=== PATIENT | male | born 1950 | race Caucasian/White ===

== ENCOUNTER 2017-04-04 00:40 | Emergency (ER) | payer MEDICARE, MEDICAID ==
[~2017-04-04] VITALS: Ht 185.4 cm; Wt 81.6 kg
[~2017-04-04 00:40] MED LIST: ACET1TAB12 PO; ALBU18HF2 INH; ALBU8.5H4 IH; BRIM5DRO5 OP; FLUT1DIS28 IH; FOLI1TAB16 PO; HYDR-548 PO; LATA2.5D7 EACHEYE; LEVO750T21 PO; LITH300C2 PO; LITH300C4 PO; NITR0.4T SL; TERA2CAP4 PO
[2017-04-04 02:27] VITALS: BP 108/74
== END 2017-04-04 02:51 | disposition home or self-care (01) ==
LOC: ER 00:43
DX: R25.1 Tremor, unspecified (principal); I95.9 Hypotension, unspecified; I49.9 Cardiac arrhythmia, unspecified; M25.562 Pain in left knee; M25.561 Pain in right knee; G89.29 Other chronic pain; F31.9 Bipolar disorder, unspecified; F32.9 Major depressive disorder, single episode, unspecified; H40.9 Unspecified glaucoma; F17.200 Nicotine dependence, unspecified, uncomplicated
CPT/HCPCS: A4606; Z7502; Z7610

== ENCOUNTER 2017-06-25 03:14 | Emergency (ER) | payer MEDICARE, MEDICAID ==
[~2017-06-25] VITALS: Ht 175.3 cm; Wt 79.4 kg
--- NOTE | 2017-06-25 03:20 | NUR ---
.To bed 8 a 66 yo male bibself and requesting medical clearance for cassi mensah. Patient is aaox4, ambulatory with steady gait, nad noted, vss. Awaiting for er md pedraza
--- NOTE | 2017-06-25 03:25 | NUR ---
Cruller Maker Machine at bedside for eval.
[2017-06-25 03:44] LABS: BASOPHILS % (AUTO) 0.2 % (0.0-2.0); EOSINOPHILS % (AUTO) 0.2 % (0.0-6.0); HEMATOCRIT 43 % (39-51); HEMOGLOBIN 14.3 g/dL (13.5-17.5); LYMPHOCYTES # (AUTO) 1.1 /CMM (0.8-4.8); LYMPHOCYTES % (AUTO) 10.8 % (20.0-44.0); MEAN CORPUSCULAR HEMOGLOBIN 31 PG (26.0-33.0); MEAN CORPUSCULAR HGB CONC 33 g/dl (31.0-36.0); MEAN CORPUSCULAR VOLUME 93 fL (80-96); MONOCYTES # (AUTO) 0.6 /CMM (0.1-1.30); MONOCYTES % (AUTO) 6.3 % (2.0-12.0); NEUTROPHILS # (AUTO) 8.4 /CMM (1.8-8.9); NEUTROPHILS % (AUTO) 82.5 % (43.0-81.0); PLATELET COUNT (AUTO) 255 /CMM (150-450); RDW COEFFICIENT OF VARIATION 14.3 (11.5-15.0); RED BLOOD CELL COUNT(AUTO) 4.65 MIL/uL (4.5-6.0); WHITE BLOOD COUNT (AUTO) 10.2 K/uL (4.3-11.0)
[2017-06-25 03:47] LABS: APPEARANCE,URINE CLEAR (CLEAR); BILIRUBIN,URINE NEGATIVE (NEGATIVE); BLOOD, URINE NEGATIVE Ery/uL (NEGATIVE); COLOR,URINE YELLOW (YELLOW); KETONES,URINE NEGATIVE (NEGATIVE); LEUKOCYTE ESTERASE ,URINE NEGATIVE (NEGATIVE); NITRITE, URINE NEGATIVE (NEGATIVE); PH,URINE 5.5 (5.0-8.0); PROTEIN,URINE NEGATIVE (NEGATIVE); UGLUCOSE NEGATIVE (NEGATIVE); UROBILINOGEN,URINE 0.2 EU/dL (0.2)
[2017-06-25 03:53] LABS: CALCIUM, SERUM 9.2 mg/dL (8.5-10.1); CREATININE 0.9 mg/dL (0.6-1.3); POTASSIUM 3.8 mmol/L (3.5-5.1)
[2017-06-25 03:59] LABS: ALBUMIN 4.3 g/dL (3.4-5.0); BILIRUBIN,DIRECT 0.1 mg/dL (0.0-0.2); BILIRUBIN,TOTAL 0.4 mg/dL (0.2-1.0); SALICYLATE 2.9 mg/dL (2.8-20.0); TOTAL PROTEIN, SERUM 7.9 g/dL (6.4-8.2)
[2017-06-25] MEDS ORDERED: HYDROCODONE/APAP 5/325MG 1 EACH TABLET ONE (04:01)
--- NOTE | 2017-06-25 04:10 | NUR ---
Medicated patient as ordered by Dr Catherine.
[2017-06-25] MEDS ORDERED: HYDROCODONE/APAP 5/325MG 1 EACH TABLET PO ONE (04:30)
--- NOTE | 2017-06-25 09:14 | NUR ---
CALLED [facility] ([phone]) AND SPOKE WITH [place]. SHE STATES THERE IS BED AVAILABLILITY AT [facility] LOC[facility]. ACCEPTING MD IS DR. CUI CHART FAXED TO [phone] INSTRUCTED TO FOLLOW UP WITH [facility] AT [phone]
--- NOTE | 2017-06-25 09:51 | NUR ---
CALLED [facility] AT [phone] AND SPOKE WITH UNIT CHARGE NURSE. SHE REQUESTS A CALL BACK IN 30 MIN TO REVIEW CHART AND FIND BED PLACEMENT
--- NOTE | 2017-06-25 10:30 | NUR ---
PT WILL BE GOING TO [facility] ROOM 629-B NURSING REPORT GIVEN TO PONCHO HUERTAS
--- NOTE | 2017-06-25 10:31 | NUR ---
CALLED [facility] FOR TRANSPORT ETA 1 HOUR
[2017-06-25 10:34] VITALS: BP 111/73
--- NOTE | 2017-06-25 11:00 | NUR ---
per patient denies si/hi and wants to leave. refused to be transferred to facility. no further complaints. vss. pt verbalized understanding of discharge instructions. no further complaints.
--- NOTE | 2017-06-25 11:00 | NUR ---
DR. MERRILL AT BEDSIDE TO REEVALUATE PATIENT
== END 2017-06-25 11:11 | disposition short-term general hospital (02) ==
LOC: ER 03:16
DX: F31.9 Bipolar disorder, unspecified (principal); F25.9 Schizoaffective disorder, unspecified; H40.9 Unspecified glaucoma; F17.200 Nicotine dependence, unspecified, uncomplicated
CPT/HCPCS: 36415; 80048-TC; 80076-TC; 80305; 81000-TC; 85025-TC; A4606; G0480; Z7610

== ENCOUNTER 2019-05-21 13:35 | Inpatient (IN) | payer MEDICARE, MEDICAID ==
[~2019-05-21] VITALS: Ht 185.4 cm; Wt 83.9 kg
[~2019-05-21 13:35] MED LIST changes: +BRIM5DRO5 EACHEYE; -BRIM5DRO5 OP; +HYDR-4354 PO; -HYDR-548 PO
--- NOTE | 2019-05-21 13:45 | NUR ---
PT BIB PA FROM [facility], LEFT FACIAL DROOP AND LUE WEAKNESS X 1 WEEK, PT IS AAOX, NOT IN RESPIRATORY DISTRESS, HOOKED TO MONITOR, V/S STABLE, KEPT RESTED AND COMFORTABLE, WILL CONTINUE TO MONITOR.
--- NOTE | 2019-05-21 13:55 | NUR ---
IV LINE ESTABLISHED, BLOOD DRAWNED AND SENT TO LAB.
--- NOTE | 2019-05-21 14:10 | NUR ---
URINAL GIVEN BUT UNABLE TO PROVIDE URINE SPECIMEN.
[2019-05-21 14:12] LABS: BASOPHILS # (AUTO) 0.1 /CMM (0.0-0.2); BASOPHILS % (AUTO) 1.8 % (0.0-2.0); EOSINOPHILS % (AUTO) 2.3 % (0.0-6.0); HEMATOCRIT 45 % (39-51); HEMOGLOBIN 14.8 g/dL (13.5-17.5); LYMPHOCYTES # (AUTO) 1.1 /CMM (0.8-4.8); LYMPHOCYTES % (AUTO) 18.5 % (20.0-44.0); MEAN CORPUSCULAR HGB CONC 33 g/dl (31.0-36.0); MEAN CORPUSCULAR VOLUME 96 fL (80-96); MONOCYTES # (AUTO) 0.6 /CMM (0.1-1.30); MONOCYTES % (AUTO) 10.4 % (2.0-12.0); NEUTROPHILS # (AUTO) 3.8 /CMM (1.8-8.9); PLATELET COUNT (AUTO) 194 /CMM (150-450); RED BLOOD CELL COUNT(AUTO) 4.68 MIL/uL (4.5-6.0); WHITE BLOOD COUNT (AUTO) 5.7 K/uL (4.3-11.0)
--- NOTE | 2019-05-21 14:13 | NUR ---
SEEN AND EXAMINED BY DR. العراقي.
[2019-05-21 14:19] LABS: CALCIUM, SERUM 8.6 mg/dL (8.5-10.1); CARBON DIOXIDE 27 mmol/L (21-32); CHLORIDE 105 mmol/L (98-107); CREATININE 0.8 mg/dL (0.6-1.3); GLUCOSE 110 mg/dL (74-106); POTASSIUM 3.9 mmol/L (3.5-5.1); SODIUM SERUM 138 mmol/L (136-145); UREA NITROGEN, BLOOD 19 mg/dL (7-18)
--- NOTE | 2019-05-21 14:20 | NUR ---
PT IS WHEELED TO CT SCAN VIA [facility].
[2019-05-21] MEDS ORDERED: NALO4SPR NS (14:24)
[2019-05-21] MEDS ORDERED: HYDR-3976 PO (14:24)
[2019-05-21] MEDS ORDERED: TAMS-12 PO (14:24)
[2019-05-21] MEDS ORDERED: ACET-2605 PO (14:24)
[2019-05-21] MEDS ORDERED: GABA-534 PO (14:24)
[2019-05-21] MEDS ORDERED: DICL100G16 TP (14:24)
[2019-05-21] MEDS ORDERED: RIVA10TA PO (14:24)
[2019-05-21] MEDS ORDERED: FLUT1BLS IH (14:24)
[2019-05-21] MEDS ORDERED: NICO-676 TD (14:24)
[2019-05-21] MEDS ORDERED: TIOT18CA3 IH (14:24)
[2019-05-21] MEDS ORDERED: ACET-868 PO (14:24)
[2019-05-21] MEDS ORDERED: FINA5TAB11 PO (14:24)
[2019-05-21] MEDS ORDERED: FLUT16SP BNOSTRILS (14:24)
[2019-05-21] MEDS ORDERED: MIRT15TA7 PO (14:24)
[2019-05-21] MEDS ORDERED: NYST15OI2 TP (14:24)
[2019-05-21] MEDS ORDERED: ARIP10TA9 PO (14:24)
[2019-05-21 14:48] LABS: CHOLESTEROL 137 mg/dL (<200); HDL CHOLESTEROL 46 mg/dL (40-60); LDL 78 mg/dL (0-99); TRIGLYCERIDES 81 mg/dL (30-150)
--- NOTE | 2019-05-21 16:16 | NUR ---
CALLED OFFICE OF DR JONAS, PAGED MEDICAL OFFICE REP
--- NOTE | 2019-05-21 16:32 | NUR ---
CALLED PATRICK HAMILTON, CURRICULUM ASSISTANT PRINCIPAL SAM SLATER
--- NOTE | 2019-05-21 18:30 | NUR ---
REPORT GIVEN TO KIYA ALSTON FOR DINORA.
[2019-05-21 20:00] VITALS: BP 91/55
--- NOTE | 2019-05-21 20:00 | NUR ---
FIRST OFFICER NOTES RECEIVED PATIENT AWAKE IN BED WITH NO DISTRESS NOTED. CALL LIGHT WITHIN REACH. NO C/O PAIN OR DISCOMFORT. RIGHT HAND #18 GAUGE INTACT AND PATENT. STILL NOTED WITH LEFT FACIAL DROOP. SPOKE WITH DR. CARIAS FOR ADMITTING ORDERS. ALL ORDERS NOTED AND CARRIED OUT. PATIENT REFUSED SKIN ASSESSMENT AND TELE MONITORING DESPITE EXPLANATION OF RISKS AND BENEFITS. PER PATIENT, NO NEED D/T HE "WILL BE GOING HOME TOMORROW ANYWAY." CONTINUED ENCOURAGEMENT GIVEN AND PATIENT SAID HE WOULD ALLOW TELE LEADS TO BE PLACED ON HIM IF HE IS GIVEN MORE FOOD. NOC ANALYST GAVE HIM SANDWICHES BUT PATIENT STILL CONTINUES TO BE NON COMPLIANT. BED IN LOW LOCK SETTING. ROOM FREE OF CLUTTER AND BELONGINGS KEPT NEAR BEDSIDE. WILL CONTINUE TO MONITOR.
[2019-05-21] MEDS ORDERED: HOME MED MISCELLANEOUS XX PRN (21:30)
[2019-05-21] MEDS ORDERED: HYDROCODONE/APAP 7.5/325MG 1 EACH TABLET PO PRN (21:30)
[2019-05-21] MEDS ORDERED: MISCELLANEOUS MED 1 EA EA PO PRN (21:30)
[2019-05-21] MEDS ORDERED: FLUTICASONE PROPIONATE 16 GM BOTTLE NS PRN (21:30)
[2019-05-21] MEDS ORDERED: ACETAMINOPHEN 325 MG TABLET PO PRN (21:30)
[2019-05-21] MEDS ORDERED: ALBUTEROL SULFATE 8 GM HFA.AER.AD IH SCH (21:30)
[2019-05-21] MEDS ORDERED: ASPIRIN 325 MG TABLET PO ONE (22:00)
[2019-05-22] MEDS: ARIPIPRAZOLE 5 MG TABLET PO SCH ×2 (00:27→22:35)
[2019-05-22] MEDS: MIRTAZAPINE 15 MG TABLET PO SCH ×2 (00:27→20:28)
[2019-05-22] MEDS: ALBUTEROL FS 2.5 MG/3 ML VIAL.NEB NEB SCH ×4 (00:36→19:30)
[2019-05-22] MEDS: IPRATROPIUM NEB FS 0.5 MG/2.5 ML AMPUL.NEB NEB SCH ×4 (00:36→19:30)
[2019-05-22 06:41] LABS: BASOPHILS % (AUTO) 0.6 % (0.0-2.0); EOSINOPHILS % (AUTO) 3.5 % (0.0-6.0); HEMATOCRIT 44 % (39-51); HEMOGLOBIN 14.4 g/dL (13.5-17.5); MEAN CORPUSCULAR HGB CONC 33 g/dl (31.0-36.0); MEAN CORPUSCULAR VOLUME 94 fL (80-96); MONOCYTES # (AUTO) 0.5 /CMM (0.1-1.30); MONOCYTES % (AUTO) 11.9 % (2.0-12.0); NEUTROPHILS # (AUTO) 2.3 /CMM (1.8-8.9); PLATELET COUNT (AUTO) 169 /CMM (150-450); RED BLOOD CELL COUNT(AUTO) 4.62 MIL/uL (4.5-6.0)
--- NOTE | 2019-05-22 06:54 | NUR ---
AIRCRAFT METALSMITH NOTES PATIENT ASLEEP IN BED WITH NO DISTRESS NOTED. CALL LIGHT WITHIN REACH. ALL DUE MEDS GIVEN ORDERED WITH NO ASE NOTED. PERIPHERAL LINE INTACT AND PATENT. PATIENT STILL REFUSES TELE MONITORING AND STATES THE LEADS AND WIRES ANNOY HIM AND MAKE HIM FEEL UNCOMFORTABLE. ALSO REFUSED AM VITALS CHECK. CONTINUED ENCOURAGEMENT AND EXPLANATION OF RISKS AND BENEFITS GIVEN. BED IN LOW LOCK SETTING. ROOM FREE OF CLUTTER AND BELONGINGS KEPT NEAR BEDSIDE. WILL ENDORSE TO ONCOMING SHIFT.
[2019-05-22 06:58] LABS: CALCIUM, SERUM 8.8 mg/dL (8.5-10.1); CREATININE 0.9 mg/dL (0.6-1.3); POTASSIUM 4.3 mmol/L (3.5-5.1)
[2019-05-22 08:00] VITALS: BP 103/65
--- NOTE | 2019-05-22 08:00 | NUR ---
ROOM SERVICE MANAGER OPENING NOTES Received Patient resting and sitting up on bed. A/O x 3. VS stable with no acute distress. Breathing even and unlabored on room air with no respiratory distress. Patient stated moderate pain on bilateral knees. Will intervene as ordered. 18g PIV on RIGHT HAND clean, dry, intact and flushing well. Patient REFUSED telemonitor placement. Patient stated that monitor is uncomfortable. Explained risks and benefits to Patient. Patient still refuses. Safety precautions in place. Bed locked and set to lowest position with side rails x 2 up. Will continue to monitor.
[2019-05-22] MEDS ORDERED: TIOTROPIUM BROMIDE 6 CAP/BOX CAP.W.DEV IH SCH (09:00)
[2019-05-22] MEDS ORDERED: NICOTINE PATCH (14MG) 14 MG PATCH.TD24 TD SCH ×3 (09:00)
[2019-05-22] MEDS: FLUTICASONE/VILANTEROL 1 EACH BLST.W.DEV IH SCH (09:29)
[2019-05-22] MEDS: HYDROCODONE/APAP 5/325MG 1 EACH TABLET PO PRN ×3 (09:33→20:28)
[2019-05-22] MEDS: FINASTERIDE (5 MG) 5 MG TABLET PO SCH (09:37)
[2019-05-22] MEDS: ASPIRIN 325 MG TABLET PO SCH (09:37)
[2019-05-22] MEDS: TAMSULOSIN 0.4 MG CAP.SR.24H PO SCH (09:37)
[2019-05-22] MEDS: LITHIUM CARBONATE (300 MG CAP) 300 MG CAPSULE PO SCH ×3 (09:37→16:33)
[2019-05-22] MEDS: GABAPENTIN 300 MG CAPSULE PO SCH ×3 (09:37→16:33)
[2019-05-22] MEDS: BRIMONIDINE TARTRATE OPHT SOLN 5 ML BOTTLE EACHEYE SCH ×3 (11:21→16:31)
[2019-05-22] MEDS ORDERED: NALOXONE HCL 0.4 MG/ML AMPUL IV PRN (14:00)
[2019-05-22 16:00] VITALS: BP 98/68
[2019-05-22] MEDS: RIVAROXABAN 10 MG TABLET PO SCH (16:32)
--- NOTE | 2019-05-22 19:10 | NUR ---
MS RN OPENING NOTES; RECEIVED PATIENT RESTING COMFORTABLY IN BED, SLEEPING AROUSABLE, ALERT AND ORIENTED X4. UPPER BED SIDERAILS X2 ARE DOWN PATIENT REFUSED IT TO PLACE THEM UP. PATIENT REFUSED THE HOSPITAL SOCKS, EDUCATED THE IMPORTANCE OF SOCKS AND SIDERAILS, PATIENT STILL REFUSED. REMINDED PATIENT TO CALL FOR ASSISTANCE WHEN OOB, AND TO USE FWW WHICH IS AVAILABLE AT THE BEDSIDE, PATIENT VERBALIZED UNDERSTANDING. CALL LIGHT WITHIN REACH. PATIENT REFUSED THE BED ALARM ON. PATIENT REFUSED TO WEAR GOWN. NO NOTED WEAKNESS ON ALL EXTREMETIES. THER'S A LITTLE FACIAL DROOPING ON THE LEFT SIDE WHEN HE SMILED. NO SOB.
--- NOTE | 2019-05-22 19:19 | NUR ---
MS RN CLOSING NOTES Patient asleep and resting on bed. A/O x 3. VS stable with no acute distress. Breathing even and unlabored on room air with no respiratory distress. No signs and symptoms of pain noted. 18g PIV on RIGHT HAND clean, dry, intact and flushing well. Safety precautions in place. Bed locked and set to lowest position with side rails x 2 up. All needs rendered at this time. Will endorse plan of care to oncoming shift.
[2019-05-22 20:00] VITALS: BP 91/55
[2019-05-22 20:15] VITALS: BP 91/55
[2019-05-22] MEDS: LATANOPROST EYE DROP 0.005% 2.5 ML BOTTLE EACHEYE SCH (20:27)
--- NOTE | 2019-05-22 20:54 | NUR ---
CALLED THE PHARMACY RE: MEDS ABILIFY TABS X2 BARCODE CANNOT BE SCANNED. THEY WILL BRING ANOTHER TABS. PLACED THE 2 TABS ON THE PATIENT'S BIN INSUDE THE MED ROOM PER PHARMACY INSTRUCTIONS.
[2019-05-23] MEDS: HYDROCODONE/APAP 5/325MG 1 EACH TABLET PO PRN ×5 (01:08→22:10)
--- NOTE | 2019-05-23 01:23 | NUR ---
PATIENT REFUSED SCD'S. EDUCATED THE BENEFITS OF THE MED.
[2019-05-23] MEDS: IPRATROPIUM NEB FS 0.5 MG/2.5 ML AMPUL.NEB NEB SCH ×4 (01:30→18:55)
[2019-05-23] MEDS: ALBUTEROL FS 2.5 MG/3 ML VIAL.NEB NEB SCH ×4 (01:30→18:55)
--- NOTE | 2019-05-23 06:27 | NUR ---
MS RN CLOSING NOTES: PATIENT IS RESTING COMFORTABLY IN BED. NO SOB NOTED. MEDICATED WITH PAIN MED PRN, PAIN IS MANAGED. SLEPT THROUGHOUT THE NIGHT. V/S AND 02 SAT WNL. CALL LIGHT WITHIN REACH. BED IN LOW AND LOCKED POSITION. NO ACUTE EVENTS OVERNIGHT.
--- NOTE | 2019-05-23 07:06 | NUR ---
MS RN NOTES PATIENT IN BED ALERT ORIENTED X 4. NO ACUTE DISTRESS NOTED. BREATHING UNLABORED. NO SOB NOTED. IV ACCESS PATENT AND INTACT, NO REDNESS OR SWELLING NOTED. SAFETY MEASURES IN PLACE. CALL LIGHT WITHIN REACH. WILL CONTINUE TO MONITOR ACCORDINGLY.
[2019-05-23 07:30] LABS: BASOPHILS % (AUTO) 0.5 % (0.0-2.0); EOSINOPHILS % (AUTO) 4.3 % (0.0-6.0); HEMATOCRIT 45 % (39-51); HEMOGLOBIN 14.9 g/dL (13.5-17.5); LYMPHOCYTES # (AUTO) 1.3 /CMM (0.8-4.8); LYMPHOCYTES % (AUTO) 27.8 % (20.0-44.0); MEAN CORPUSCULAR HGB CONC 33 g/dl (31.0-36.0); MEAN CORPUSCULAR VOLUME 95 fL (80-96); MONOCYTES # (AUTO) 0.6 /CMM (0.1-1.30); MONOCYTES % (AUTO) 12.1 % (2.0-12.0); NEUTROPHILS # (AUTO) 2.6 /CMM (1.8-8.9); NEUTROPHILS % (AUTO) 55.3 % (43.0-81.0); PLATELET COUNT (AUTO) 153 /CMM (150-450); RED BLOOD CELL COUNT(AUTO) 4.74 MIL/uL (4.5-6.0); WHITE BLOOD COUNT (AUTO) 4.7 K/uL (4.3-11.0)
[2019-05-23 07:46] LABS: ALBUMIN 3.4 g/dL (3.4-5.0); BILIRUBIN,TOTAL 0.3 mg/dL (0.2-1.0); CALCIUM, SERUM 8.9 mg/dL (8.5-10.1); CREATININE 0.9 mg/dL (0.6-1.3); PHOSPHORUS 3.3 mg/dL (2.5-4.9); POTASSIUM 4.7 mmol/L (3.5-5.1); TOTAL PROTEIN, SERUM 6.6 g/dL (6.4-8.2)
[2019-05-23 08:00] VITALS: BP 105/74
[2019-05-23] MEDS: FLUTICASONE/VILANTEROL 1 EACH BLST.W.DEV IH SCH (08:49)
[2019-05-23] MEDS: BRIMONIDINE TARTRATE OPHT SOLN 5 ML BOTTLE EACHEYE SCH ×3 (08:50→18:04)
[2019-05-23] MEDS: LITHIUM CARBONATE (300 MG CAP) 300 MG CAPSULE PO SCH ×3 (08:50→18:02)
[2019-05-23] MEDS: TAMSULOSIN 0.4 MG CAP.SR.24H PO SCH (08:50)
[2019-05-23] MEDS: ASPIRIN 325 MG TABLET PO SCH (08:50)
[2019-05-23] MEDS: GABAPENTIN 300 MG CAPSULE PO SCH ×3 (08:51→18:02)
[2019-05-23] MEDS: FINASTERIDE (5 MG) 5 MG TABLET PO SCH (08:51)
[2019-05-23] MEDS: MUPIROCIN OINT 2% 22 GM TUBE SCH ×2 (12:48→22:20)
[2019-05-23 15:45] VITALS: BP 110/67
[2019-05-23] MEDS: RIVAROXABAN 10 MG TABLET PO SCH (18:03)
--- NOTE | 2019-05-23 18:53 | NUR ---
MS RN NOTES PATIENT IN BED ALERT ORIENTED X 4. NO ACUTE DISTRESS NOTED. BREATHING UNLABORED. NO SOB NOTED. IV ACCESS PATENT AND INTACT, NO REDNESS OR SWELLING NOTED. DUE MEDICATIONS GIVEN, NO ASE NOTED. NEEDS ATTENDED AND ANTICIPATED.SAFETY MEASURES IN PLACE. CALL LIGHT WITHIN REACH. WILL ENDORSE TO NIGHT NURSE FOR CONTINUITY OF CARE.
--- NOTE | 2019-05-23 19:45 | NUR ---
MS RN NOTES LAYING COMFORTABLY ON BED WATCHING TV PROGRAM,A/O X4,ABLE TO VERBALIZED NEEDS.ISOLATION PRECAUTION FOR MRSA NARES.SALINE LOCK RIGHT HAND INTACT AND PATENT.WILL CONTINUE TO MONITOR STATUS.
[2019-05-23 20:00] VITALS: BP 95/61
[2019-05-23] MEDS: LATANOPROST EYE DROP 0.005% 2.5 ML BOTTLE EACHEYE SCH (22:10)
[2019-05-23] MEDS: ARIPIPRAZOLE 5 MG TABLET PO SCH (22:10)
--- NOTE | 2019-05-23 22:10 | NUR ---
MS RN NOTES PAIN MANAGEMENT AWAKE THIS TIME,C/O LOWER BACK AND KNEE PAIN,MEDICATED WITH NORCO 5/325MG 1.5 TABLET GIVEN.WILL MONITOR FOR RELIEF.
[2019-05-23] MEDS: MIRTAZAPINE 15 MG TABLET PO SCH (22:11)
[2019-05-24] MEDS: ALBUTEROL FS 2.5 MG/3 ML VIAL.NEB NEB SCH ×3 (01:13→12:55)
[2019-05-24] MEDS: IPRATROPIUM NEB FS 0.5 MG/2.5 ML AMPUL.NEB NEB SCH ×3 (01:13→12:55)
[2019-05-24] MEDS: HYDROCODONE/APAP 5/325MG 1 EACH TABLET PO PRN ×2 (03:18→11:30)
--- NOTE | 2019-05-24 03:18 | NUR ---
MS RN NOTES PAIN MANAGEMENT AWAKE,C/O BILATERAL KNEE PAIN,MEDICATED WITH NORCO 5/325MG,1.5 TABLET GIVEN ORDERED.
--- NOTE | 2019-05-24 06:16 | NUR ---
MS RN NOTES SLEPT WELL WITH PAIN MANAGEMENT.REMAINS ON ISOLATION PRECAUTION FOR MRSA NARES.PREFERS TO BE D/C HOME AND NEEDS TRANSPORTATION.IN NO ACUTE DISTRESS.WILL GIVE REPORT TO NORI HUERTAS FOR DINORA.
--- NOTE | 2019-05-24 07:27 | NUR ---
RN MS NOTES OPENING Patient is currently at 2L o2 nasal cannula, patient was having an episode of SOB earlier and was put on o2. RT called. No s/s of pain at this time. patient resting comfortably on his bed. bed at the lowest setting, call light within reach.
[2019-05-24 08:00] VITALS: BP 107/76
[2019-05-24] MEDS: FINASTERIDE (5 MG) 5 MG TABLET PO SCH (08:16)
[2019-05-24] MEDS: ASPIRIN 325 MG TABLET PO SCH (08:16)
[2019-05-24] MEDS: TAMSULOSIN 0.4 MG CAP.SR.24H PO SCH (08:16)
[2019-05-24] MEDS: GABAPENTIN 300 MG CAPSULE PO SCH ×2 (08:17→12:30)
[2019-05-24] MEDS: LITHIUM CARBONATE (300 MG CAP) 300 MG CAPSULE PO SCH ×2 (08:17→12:30)
[2019-05-24] MEDS: BRIMONIDINE TARTRATE OPHT SOLN 5 ML BOTTLE EACHEYE SCH ×2 (08:18→12:31)
[2019-05-24] MEDS: MUPIROCIN OINT 2% 22 GM TUBE SCH (08:18)
[2019-05-24] MEDS: FLUTICASONE/VILANTEROL 1 EACH BLST.W.DEV IH SCH (08:18)
--- NOTE | 2019-05-24 14:40 | NUR ---
RN MS NOTES Patient to be transferred to [place] [facility] at this time. No sob noted, vital signs stable and is baseline per patient. Patient has all his belongings with him during discharge, all paperwork are signed and patient has no questions or concerns about discharge instructions. Patient refused to have his skin checked and stated that it is fine. Removed IV with minimal bleeding noted. Patient taken with the ambulance.
== END 2019-05-24 15:00 | DRG 69 ==
LOC: ER 13:37 → TELE 16:11 → MED 05-22 12:22
PROVIDERS: ADMIT Internal Medicine Nephrology; ATTEND Internal Medicine Nephrology
DX: G45.9 Transient cerebral ischemic attack, unspecified (principal); F32.9 Major depressive disorder, single episode, unspecified; H40.9 Unspecified glaucoma; M19.90 Unspecified osteoarthritis, unspecified site; G89.29 Other chronic pain; Z91.5 Personal history of self-harm; Z82.3 Family history of stroke; Z79.899 Other long term (current) drug therapy; Z79.51 Long term (current) use of inhaled steroids; Z79.01 Long term (current) use of anticoagulants; N40.0 Benign prostatic hyperplasia without lower urinary tract symptoms; H54.62 Unqualified visual loss, left eye, normal vision right eye; Z86.73 Personal history of transient ischemic attack (TIA), and cerebral infarction without residual deficits; R29.818 Other symptoms and signs involving the nervous system
CPT/HCPCS: 36415; 70450-TC; 71045-TC; 80048-TC; 80053-TC; 80061-TC; 80305; 83735-TC; 84100-TC; 84484-TC; 85025-TC; 85730-TC; 87081-TC; 92507-TC; 92521; 92526; 92611-TC; 93307-TC; 93880-TC; 94799-TC; 97116-TC; 97530-TC; 97535-TC; G0378

== ENCOUNTER 2019-08-23 10:32 | Emergency (ER) | payer MEDICARE, MEDICAID ==
[~2019-08-23] VITALS: Ht 185.4 cm; Wt 89.4 kg
[~2019-08-23 10:32] MED LIST changes: +ACET-2605 PO; +ACET-868 PO; -ACET1TAB12 PO; -ALBU8.5H4 IH; +ARIP10TA9 PO; +DICL100G16 TP; +FINA5TAB11 PO; +FLUT16SP BNOSTRILS; +FLUT1BLS IH; -FLUT1DIS28 IH; -FOLI1TAB16 PO; +GABA-534 PO; +HYDR-3976 PO; -HYDR-4354 PO; -LEVO750T21 PO; -LITH300C4 PO; +MIRT15TA7 PO; +NALO4SPR NS; +NICO-676 TD; -NITR0.4T SL; +NYST15OI2 TP; +RIVA10TA PO; +TAMS-12 PO; -TERA2CAP4 PO; +TIOT18CA3 IH
--- NOTE | 2019-08-23 10:42 | NUR ---
[facility] unit 29 from [facility] "SOB/generalized weakness.They gave me RTx but feel not getting enough air". Patient a/ox4, no distress noted, on room air with spo2 of 97%. Patient changed into gown, attached to the quality assurance supervisor body. Needs attended. Will monitor.
[2019-08-23] MEDS ORDERED: OXYB5TAB11 PO (10:48)
[2019-08-23] MEDS ORDERED: DORZ10DR11 EACHEYE (10:48)
[2019-08-23] MEDS ORDERED: ALBU2.5V38 IH (10:48)
[2019-08-23] MEDS ORDERED: BISA10SU11 RC (10:48)
[2019-08-23] MEDS ORDERED: BUPR150T12 PO (10:48)
[2019-08-23] MEDS ORDERED: IPRA0.2S9 IH (10:48)
[2019-08-23] MEDS ORDERED: ASPI-992 PO (10:48)
[2019-08-23] MEDS ORDERED: MAGN400O6 PO (10:48)
[2019-08-23 11:31] LABS: BASOPHILS % (AUTO) 0.5 % (0.0-2.0); EOSINOPHILS % (AUTO) 2.5 % (0.0-6.0); HEMATOCRIT 42 % (39-51); HEMOGLOBIN 13.9 g/dL (13.5-17.5); LYMPHOCYTES # (AUTO) 1.1 /CMM (0.8-4.8); LYMPHOCYTES % (AUTO) 13.7 % (20.0-44.0); MEAN CORPUSCULAR HGB CONC 33 g/dl (31.0-36.0); MEAN CORPUSCULAR VOLUME 97 fL (80-96); MONOCYTES # (AUTO) 0.6 /CMM (0.1-1.30); MONOCYTES % (AUTO) 8.2 % (2.0-12.0); NEUTROPHILS # (AUTO) 5.9 /CMM (1.8-8.9); NEUTROPHILS % (AUTO) 75.1 % (43.0-81.0); PLATELET COUNT (AUTO) 206 /CMM (150-450); WHITE BLOOD COUNT (AUTO) 7.9 K/uL (4.3-11.0)
[2019-08-23 11:34] LABS: CALCIUM, SERUM 9.2 mg/dL (8.5-10.1); CARBON DIOXIDE 30 mmol/L (21-32); CHLORIDE 105 mmol/L (98-107); GLUCOSE 99 mg/dL (74-106); POTASSIUM 4.4 mmol/L (3.5-5.1); SODIUM SERUM 139 mmol/L (136-145); UREA NITROGEN, BLOOD 18 mg/dL (7-18)
[2019-08-23 11:52] LABS: ALANINE AMINOTRANSFERASE 21 U/L (12-78); ALBUMIN 3.6 g/dL (3.4-5.0); ALKALINE PHOSPHATASE 49 U/L (46-116); ASPARTATE AMINOTRANSFERASE 14 U/L (15-37); B-TYPE NATRIURETIC PEPTIDE 316 PG/ML (0-125); BILIRUBIN,DIRECT 0.1 mg/dL (0.0-0.2); BILIRUBIN,TOTAL 0.3 mg/dL (0.2-1.0); TOTAL PROTEIN, SERUM 6.9 g/dL (6.4-8.2)
[2019-08-23] MEDS ORDERED: ALBUTEROL FS 2.5 MG/0.5 ML VIAL.NEB ONE (13:17)
[2019-08-23] MEDS ORDERED: IPRATROPIUM NEB FS 0.5 MG/2.5 ML AMPUL.NEB ONE (13:17)
[2019-08-23] MEDS ORDERED: ALBUTEROL FS 2.5 MG/0.5 ML VIAL.NEB NEB ONE (13:30)
[2019-08-23] MEDS ORDERED: IPRATROPIUM NEB FS 0.5 MG/2.5 ML AMPUL.NEB NEB ONE (13:30)
--- NOTE | 2019-08-23 14:22 | NUR ---
ARRANGED S TRANSPORT WITH [id number], TRIP NUMBER [id number]
[2019-08-23 15:29] VITALS: BP 108/65
--- NOTE | 2019-08-23 15:29 | NUR ---
PATIENT IN NO RESP DISTRESS, STATED HE FEELS BETTER. VITALS STABLE. REPORT GIVEN TO GAME FARM SUPERVISOR. IV removed. Catheter intact and site benign. Pressure and 4x4 applied to site. No bleeding noted.Patient discharged to SNF in stable condition. Written and verbal after care instructions given. Patient verbalizes understanding of inst uction.
== END 2019-08-23 15:30 ==
LOC: ER 10:36
DX: R06.02 Shortness of breath (principal); I95.9 Hypotension, unspecified; J45.909 Unspecified asthma, uncomplicated; N40.0 Benign prostatic hyperplasia without lower urinary tract symptoms; G89.29 Other chronic pain; M54.5 Low back pain; F31.9 Bipolar disorder, unspecified; R26.2 Difficulty in walking, not elsewhere classified; F10.10 Alcohol abuse, uncomplicated; F17.200 Nicotine dependence, unspecified, uncomplicated; I44.0 Atrioventricular block, first degree; Y90.9 Presence of alcohol in blood, level not specified; Z79.82 Long term (current) use of aspirin; Z86.73 Personal history of transient ischemic attack (TIA), and cerebral infarction without residual deficits
CPT/HCPCS: 36415; 71045-TC; 80048-TC; 80076-TC; 83880; 84484-TC; 85025-TC; 85378-TC

== ENCOUNTER 2020-07-09 12:47 | Inpatient (IN) | payer MEDICARE, OTHER ==
[~2020-07-09] VITALS: Ht 185.4 cm; Wt 87.1 kg
[~2020-07-09 12:47] MED LIST changes: -ACET-2605 PO; -ALBU18HF2 INH; +ALBU2.5V38 IH; +ASPI-992 PO; +BISA10SU11 RC; +BUPR150T12 PO; -DICL100G16 TP; +DORZ10DR11 EACHEYE; +IPRA0.2S9 IH; +MAGN400O6 PO; -MIRT15TA7 PO; -NALO4SPR NS; -NICO-676 TD; -NYST15OI2 TP; +OXYB5TAB16 PO; -RIVA10TA PO; -TIOT18CA3 IH
[2020-07-09] MEDS ORDERED: ALBUTEROL FS 2.5 MG/3 ML VIAL.NEB ONE (13:12)
[2020-07-09 13:22] LABS: ABG BASE EXCESS -0.2 mmol/L; ABG OXYGEN SATURATION 98.4 % (92.0-98.5); ABG PCO2 41.2 mmHg (35.0-45.0); ABG PH 7.395 (7.350-7.450); ABG PO2 113.9 mmHg (75.0-100.0); AaDO2 37.1 mmHg; MetHb 0.1 % (0.0-1.5); O2Hb 97.3 % (94.0-97.0); SITE, ABG Right Radial; VENT MODE, BG NC 2 L
[2020-07-09] MEDS ORDERED: methylPREDNISolone SOD SUCC 125 MG/2ML VIAL IV ONE (13:30)
[2020-07-09] MEDS ORDERED: ALBUTEROL FS 2.5 MG/3 ML VIAL.NEB CONTNEB ONE (13:30)
[2020-07-09] MEDS ORDERED: ASPIRIN 81 MG TAB.CHEW PO ONE (13:30)
[2020-07-09 13:42] LABS: BASOPHILS % (AUTO) 0.5 % (0.0-2.0); EOSINOPHILS % (AUTO) 4.9 % (0.0-6.0); HEMATOCRIT 39 % (39-51); HEMOGLOBIN 12.6 g/dL (13.5-17.5); LYMPHOCYTES # (AUTO) 0.6 /CMM (0.8-4.8); LYMPHOCYTES % (AUTO) 9.6 % (20.0-44.0); MEAN CORPUSCULAR HGB CONC 32 g/dl (31.0-36.0); MEAN CORPUSCULAR VOLUME 96 fL (80-96); MONOCYTES # (AUTO) 0.5 /CMM (0.1-1.30); MONOCYTES % (AUTO) 8.6 % (2.0-12.0); NEUTROPHILS # (AUTO) 4.9 /CMM (1.8-8.9); NEUTROPHILS % (AUTO) 76.4 % (43.0-81.0); PLATELET COUNT (AUTO) 222 /CMM (150-450); RED BLOOD CELL COUNT(AUTO) 4.08 MIL/uL (4.5-6.0); WHITE BLOOD COUNT (AUTO) 6.4 K/uL (4.3-11.0)
--- NOTE | 2020-07-09 13:42 | NUR ---
[facility] FROM SNF TO ER BED 7. AAOX4. SOB, TACHYPNEIC. BROUGHT IN FOR SOB AND CHEST PAIN. PT RATES HIS PAIN 6/10 MID STERNAL NON RADIATING FEELING OF PRESSURE AND TIGHTNESS SINCE THIS MORNING, CANT RECALL EXACTLY WHAT TIME. MD WAS AT THE BEDSIDE FOR EVAL. ORDERS RECEIVED NOTED AND CARREID OUT.
[2020-07-09] MEDS ORDERED: methylPREDNISolone SOD SUCC 125 MG/2ML VIAL ONE (13:44)
[2020-07-09] MEDS ORDERED: ASPIRIN 81 MG TAB.CHEW ONE (13:45)
[2020-07-09 14:34] LABS: CALCIUM, SERUM 9.4 mg/dL (8.5-10.1); CARBON DIOXIDE 24 mmol/L (21-32); CHLORIDE 105 mmol/L (98-107); CREATININE 0.9 mg/dL (0.6-1.3); GLUCOSE 94 mg/dL (74-106); POTASSIUM 4.8 mmol/L (3.5-5.1); SODIUM SERUM 139 mmol/L (136-145); UREA NITROGEN, BLOOD 14 mg/dL (7-18)
[2020-07-09] MEDS ORDERED: DORZ10DR13 RIGHTEYE (14:36)
[2020-07-09] MEDS ORDERED: LITH600C PO (14:36)
[2020-07-09] MEDS ORDERED: ARIP5TAB10 PO (14:36)
[2020-07-09] MEDS ORDERED: CRAN425C6 PO (14:36)
[2020-07-09] MEDS ORDERED: IPRA0.2S9 IH (14:36)
[2020-07-09] MEDS ORDERED: ALPR0.25 PO (14:36)
[2020-07-09] MEDS ORDERED: TIOT18CA3 IH (14:36)
[2020-07-09] MEDS ORDERED: ALBU8.5H8 IH (14:36)
[2020-07-09] MEDS ORDERED: TRAZ-182 PO (14:36)
[2020-07-09] MEDS ORDERED: GABA-532 PO (14:36)
[2020-07-09] MEDS ORDERED: CARB-93 PO (14:36)
[2020-07-09] MEDS ORDERED: CRAN3875 PO (14:36)
[2020-07-09] MEDS ORDERED: MELA3TAB41 PO (14:36)
[2020-07-09 14:51] LABS: ALANINE AMINOTRANSFERASE 6 U/L (12-78); ALBUMIN 3.9 g/dL (3.4-5.0); ALKALINE PHOSPHATASE 54 U/L (46-116); ASPARTATE AMINOTRANSFERASE 10 U/L (15-37); B-TYPE NATRIURETIC PEPTIDE 240 PG/ML (0-125); BILIRUBIN,DIRECT 0.1 mg/dL (0.0-0.2); BILIRUBIN,TOTAL 0.7 mg/dL (0.2-1.0); TOTAL PROTEIN, SERUM 7.1 g/dL (6.4-8.2)
--- NOTE | 2020-07-09 15:00 | NUR ---
CALLED NURSING SUP FOR TELE BED
--- NOTE | 2020-07-09 15:10 | NUR ---
CALLED OFFICE OF BRYON MORENO MD
--- NOTE | 2020-07-09 15:42 | NUR ---
CALLED OFFICE OF BRYON MORENO MD
--- NOTE | 2020-07-09 16:45 | NUR ---
REPORT GIVEN TO KIYA BHATIA FOR DINORA.
[2020-07-09] MEDS ORDERED: MAGNESIUM HYDROXIDE 30 ML UDC PO PRN ×2 (17:00→17:30)
[2020-07-09] MEDS ORDERED: ACETAMINOPHEN 325 MG TABLET PO PRN ×2 (17:00→17:30)
[2020-07-09] MEDS ORDERED: TIMOLOL MAL/DORZOLAM HCL OPHTH 10 ML BOTTLE EACHEYE SCH (17:00)
[2020-07-09] MEDS ORDERED: ALPRAZOLAM 0.25 MG TABLET PO PRN (17:00)
[2020-07-09] MEDS ORDERED: HYDROCODONE/APAP 7.5/325MG 1 EACH TABLET PO PRN (17:00)
[2020-07-09] MEDS ORDERED: BISACODYL SUPP (10 MG) 10 MG/SUPP.RECT SUPP.RECT RC PRN (17:00)
[2020-07-09] MEDS ORDERED: TIMOLOL MAL/DORZOLAM HCL OPHTH 10 ML BOTTLE RIGHTEYE SCH (17:00)
[2020-07-09] MEDS ORDERED: methylPREDNISolone SOD SUCC 125 MG/2ML VIAL IV SCH ×2 (17:00→21:00)
--- NOTE | 2020-07-09 17:26 | NUR ---
PT TRANSPORTED TO UNIT PN [facility] WITH EMT AND RN AT BEDSIDE. NAD NOTED DURING TRANSPORT. [place] W/O ASSIST
[2020-07-09] MEDS ORDERED: Z GUARD REMEDY 2 OZ OINT TP PRN (17:30)
[2020-07-09] MEDS ORDERED: ONDANSETRON HCL/PF 4 MG/2 ML VIAL IVP PRN (17:30)
[2020-07-09] MEDS ORDERED: MAG HYDROX/AL HYDROX/SIMETH 30 ML UDC PO PRN (17:30)
[2020-07-09] MEDS ORDERED: BUPR300T52 PO (17:52)
[2020-07-09 18:00] VITALS: BP 91/57
[2020-07-09] MEDS: FLUTICASONE PROPIONATE 16 GM BOTTLE NS SCH (18:00)
[2020-07-09] MEDS: CARBIDOPA/LEVODOPA 25/100 MG 1 UDTAB PO SCH (18:00)
[2020-07-09] MEDS: BRIMONIDINE TARTRATE OPHT SOLN 5 ML BOTTLE EACHEYE SCH (18:00)
[2020-07-09] MEDS ORDERED: ENOXAPARIN SODIUM 40 MG/0.4 ML DISP.SYRIN SQ ONE (18:00)
[2020-07-09] MEDS: OXYBUTYNIN CHLORIDE 5 MG TABLET PO SCH (18:00)
--- NOTE | 2020-07-09 18:02 | NUR ---
RN note: Patient was brought in from ED via gurney accompanied by 2 staff. Patient is A/O x4. Able to make needs known. On room air being tolerated well, saturation of 95% noted. No SOB and not in respiratory distress. Patient is stable. Belonging forms were signed and patient refused thorough body assessment saying "He does not have any wounds". Awaiting admission orders. Will endorse to oncoming shift for admission.
[2020-07-09] MEDS: GABAPENTIN 100 MG CAPSULE PO SCH (18:31)
[2020-07-09] MEDS: LOPERAMIDE HCL (2 MG CAP) 2 MG CAPSULE PO PRN (18:45)
--- NOTE | 2020-07-09 19:10 | NUR ---
RN NOTE: Report given to KIYA Ruiz for admission along with orders made by Dr. Menchaca to be noted and carried out. Dr. Menchaca in unit and making rounds.
--- NOTE | 2020-07-09 19:25 | NUR ---
rn note: Dr. Menchaca made rounds and saw patient.
--- NOTE | 2020-07-09 19:32 | NUR ---
RN NOTES DR. CARIAS ORDER TO DC ROCEPHIN AND SOLUMEDROL 60MG AND CHANGE IT TO LEVOFLOXACIN 500MG IV DAILY AND SOLU MEDROL 40MG IVP QID NOTED AND CARRIED OUT
[2020-07-09 20:00] VITALS: BP 97/65
[2020-07-09] MEDS ORDERED: CEFTRIAXONE 1 G in IV D5W 50 ML IV SCH (20:00)
[2020-07-09] MEDS ORDERED: LEVOFLOXACIN 500 MG /D5W 100ML 500 MG in PREMIX 1 EA IV SCH (20:00)
[2020-07-09] MEDS ORDERED: IPRATROPIUM BROMIDE 14 GM INHALER (or 12.9 GM) IH PRN (20:00)
--- NOTE | 2020-07-09 20:00 | NUR ---
NAVAL ENGINEER NOTES RECEIVED REPORT FROM KIYA MENDOZA; WILL CONT PLAN OF CARE AND CONT MONITORING PATIENT
[2020-07-09] MEDS ORDERED: LEVOFLOXACIN 500 MG /D5W 100ML 500 MG in PREMIX 1 EA IV ONE (20:30)
[2020-07-09] MEDS: methylPREDNISolone SOD SUCC 40 MG/ML VIAL IV SCH (20:42)
[2020-07-09] MEDS: TAMSULOSIN 0.4 MG CAP.SR.24H PO SCH (20:42)
[2020-07-09] MEDS: TIMOLOL 0.5% SOLN OPHTH 5 ML BOTTLE RIGHTEYE SCH (20:43)
[2020-07-09] MEDS: DORZOLAMIDE OPTH 2% 10 ML BOTTLE RIGHTEYE SCH (20:43)
--- NOTE | 2020-07-09 20:47 | NUR ---
CHIEF MECHANICAL ENGINEER NOTES LEVAQUIN CURRENTLY UNAVAILABLE AT THIS TIME
[2020-07-09] MEDS ORDERED: LEVOFLOXACIN 500 MG /D5W 100ML 100 ML IV ONE (21:07)
[2020-07-09] MEDS: LATANOPROST EYE DROP 0.005% 2.5 ML BOTTLE EACHEYE SCH (21:09)
[2020-07-09] MEDS: LITHIUM CARBONATE (300 MG CAP) 300 MG CAPSULE PO SCH (21:09)
[2020-07-09] MEDS: ARIPIPRAZOLE 5 MG TABLET PO SCH (21:09)
[2020-07-09] MEDS: TRAZODONE 50 MG TABLET PO SCH (21:09)
[2020-07-09] MEDS ORDERED: Medication Not On Formulary EA (Melatonin 3 MG) PO SCH (22:00)
--- NOTE | 2020-07-09 22:14 | NUR ---
NEWSPAPER DELIVERY DRIVER NOTES PATIENT IV SITE ON LEFT ARM INFILTRATED, BULGE NOTED; IV SITE REMOVED AND IV TIP INTACT; NO BLEEDING NOTED; R WRIST # 22 STARTED; CHARGE NURSE AWARE; WILL CONT TO MONITOR PATIENT WOULD LIKE TO SPEAK WITH NURSING FACILITY REGARDING CELLPHONE; I SPOKE WITH EMPLOYEE AT [facility], PER EMPLOYEE CELLPHONE IS STILL IN ROOM; WILL INFORM PATIENT
--- NOTE | 2020-07-09 22:42 | NUR ---
TRUCK GUARD NOTES PATIENT DOES NOT WANT TO TAKE PANTS OFF; PATIENT REFUSING DVT PUMPS; PATIENT EDUCATED ON IMPORTANCE OF COMPLIANCE THROUGHOUT HOSPITALIZATION; PATIENT REFUSING STILL; WILL CONT TO MONITOR
[2020-07-10] VITALS (7 sets, daily range): BP systolic 97–130; BP diastolic 62–82
--- NOTE | 2020-07-10 02:13 | NUR ---
METAL TUBE CUTTER NOTES PATIENT REFUSING TO TAKE PANTS OFF; CHARGE NURSE AWARE; WILL CONT TO MONITOR
--- NOTE | 2020-07-10 06:37 | NUR ---
BUSINESS ANALYST CLOSING NOTES PATIENT RESTING IN BED COMFORTABLY; A/OX4; BREATHING EVEN AND UNLABORED; PATIENT ON 2LPM VIA NC; TOLERATING WELL; NO SOB NOTED; PATIENT IS AWARE HE NEEDS OXYGENATION; PATIENT ATTEMPTED HIMSELF, IF HE IS ABLE TO TOLERATE BREATHING WITHOUT NASAL CANNULA, PATIENT WAS SOB; PATIENT AGREED TO KEEP NC ON ALL TIMES OR PRN; TELE MONITOR ATTACHED, READS NORMAL SINUS RHYTHM WITH 80S BPM; R WRIST # 22 SL INTACT AND PATENT, FLUSHING WELL; NO S/S OF REDNESS OR INFILTRATION NOTED; ALL NEEDS RENDERED; PATIENT ABLE TO MAKE NEEDS KNOWN; ISOLATION PRECAUTIONS MAINTAINED; SAFETY PRECAUTIONS IMPLEMENTED; BED LOCKED IN LOW POSITION; SIDE RAILSX2; CALL LIGHT WITHIN EASY REACH; WILL ENDORSE DINORA TO ONCOMING NURSE
--- NOTE | 2020-07-10 07:30 | NUR ---
RN OPENING NOTES RECEIVED PT RESTING IN BED COMFORTABLY; AWAKE, ALERT AND ORIENTED X4. NO CARDIAC OR RESPIRATORY DISTRESS NOTED. NO SOB NOTED. BREATHING EVEN AND UNLABORED; PATIENT ON 3LPM VIA NC; TOLERATING WELL; NO SOB NOTED; ON CARDIAC TELE MONITOR SHOWING NORMAL SINUS RYTHYM. IV ACCESS NOTED ON R WRIST # 22 SL INTACT AND PATENT, FLUSHING WELL; NO S/S OF REDNESS OR INFILTRATION NOTED; ALL NEEDS RENDERED; PATIENT ABLE TO MAKE NEEDS KNOWN; ISOLATION PRECAUTIONS MAINTAINED; SAFETY PRECAUTIONS IMPLEMENTED; BED LOCKED IN LOW POSITION; SIDE RAILSX2; CALL LIGHT WITHIN EASY REACH; WILL CONT TO MONITOR.
[2020-07-10 07:38] LABS: BASOPHILS % (AUTO) 0.1 % (0.0-2.0); HEMATOCRIT 40 % (39-51); HEMOGLOBIN 12.9 g/dL (13.5-17.5); LYMPHOCYTES # (AUTO) 0.4 /CMM (0.8-4.8); MEAN CORPUSCULAR HGB CONC 32 g/dl (31.0-36.0); MEAN CORPUSCULAR VOLUME 94 fL (80-96); MONOCYTES # (AUTO) 0.6 /CMM (0.1-1.30); MONOCYTES % (AUTO) 6.9 % (2.0-12.0); NEUTROPHILS # (AUTO) 7.1 /CMM (1.8-8.9); PLATELET COUNT (AUTO) 229 /CMM (150-450); WHITE BLOOD COUNT (AUTO) 8.1 K/uL (4.3-11.0)
[2020-07-10 07:53] LABS: CALCIUM, SERUM 9.3 mg/dL (8.5-10.1); MAGNESIUM 2.2 mg/dL (1.8-2.4); PHOSPHORUS 2.5 mg/dL (2.5-4.9)
[2020-07-10] MEDS: ASPIRIN 325 MG TABLET PO SCH (08:30)
[2020-07-10] MEDS: BUPROPION XL 150 MG TAB.ER.24 PO SCH (08:30)
[2020-07-10] MEDS: OXYBUTYNIN CHLORIDE 5 MG TABLET PO SCH ×2 (08:30→16:12)
[2020-07-10] MEDS: CARBIDOPA/LEVODOPA 25/100 MG 1 UDTAB PO SCH ×3 (08:30→16:12)
[2020-07-10] MEDS: FINASTERIDE (5 MG) 5 MG TABLET PO SCH (08:30)
[2020-07-10] MEDS: methylPREDNISolone SOD SUCC 40 MG/ML VIAL IV SCH ×4 (08:30→22:06)
[2020-07-10] MEDS: LITHIUM CARBONATE (300 MG CAP) 300 MG CAPSULE PO SCH ×2 (08:30→22:07)
[2020-07-10] MEDS: HYDROCODONE/APAP 5/325MG TABLET PO PRN ×2 (08:31→23:48)
[2020-07-10] MEDS: BRIMONIDINE TARTRATE OPHT SOLN 5 ML BOTTLE EACHEYE SCH ×3 (08:33→16:15)
[2020-07-10] MEDS: FLUTICASONE/VILANTEROL 1 EACH BLST.W.DEV IH SCH (08:33)
[2020-07-10] MEDS: FLUTICASONE PROPIONATE 16 GM BOTTLE NS SCH ×2 (08:34→16:15)
[2020-07-10] MEDS: GABAPENTIN 100 MG CAPSULE PO SCH ×3 (08:35→16:12)
[2020-07-10] MEDS: TIMOLOL 0.5% SOLN OPHTH 5 ML BOTTLE RIGHTEYE SCH ×2 (08:36→16:15)
[2020-07-10] MEDS: DORZOLAMIDE OPTH 2% 10 ML BOTTLE RIGHTEYE SCH ×2 (08:37→16:15)
[2020-07-10] MEDS ORDERED: TIOTROPIUM BROMIDE 6 CAP/BOX CAP.W.DEV IH SCH (09:00)
[2020-07-10] MEDS ORDERED: buPROPion SR 150 MG TABLET.ER PO SCH (09:00)
[2020-07-10] MEDS: IV NS 0.9% 1,000 ML IV PRN (11:46)
[2020-07-10] MEDS: LOPERAMIDE HCL (2 MG CAP) 2 MG CAPSULE PO PRN (12:50)
--- NOTE | 2020-07-10 18:55 | NUR ---
RN CLOSING NOTES PT RESTING IN BED COMFORTABLY; AWAKE, ALERT AND ORIENTED X4. NO CARDIAC OR RESPIRATORY DISTRESS NOTED. NO SOB NOTED. BREATHING EVEN AND UNLABORED; PATIENT ON 3LPM VIA NC; TOLERATING WELL; NO SOB NOTED; ON CARDIAC TELE MONITOR SHOWING NORMAL SINUS RYTHYM. IV ACCESS NOTED ON R WRIST # 22 SL INTACT AND PATENT, FLUSHING WELL; NO S/S OF REDNESS OR INFILTRATION NOTED; WITH NS RUNNING AT 70ML/HR. ALL NEEDS RENDERED; PATIENT ABLE TO MAKE NEEDS KNOWN; ISAFETY PRECAUTIONS IMPLEMENTED; BED LOCKED IN LOW POSITION; SIDE RAILSX2; CALL LIGHT WITHIN EASY REACH; WILL CONT TO MONITOR.
[2020-07-10] MEDS: ARIPIPRAZOLE 5 MG TABLET PO SCH (22:06)
[2020-07-10] MEDS: TRAZODONE 50 MG TABLET PO SCH (22:06)
[2020-07-10] MEDS: TAMSULOSIN 0.4 MG CAP.SR.24H PO SCH (22:06)
[2020-07-10] MEDS: LEVOFLOXACIN 500 MG /D5W 100ML 500 MG in PREMIX 1 EA IV SCH (22:06)
[2020-07-10] MEDS: LATANOPROST EYE DROP 0.005% 2.5 ML BOTTLE EACHEYE SCH (22:07)
[2020-07-11] VITALS (8 sets, daily range): BP systolic 82–191; BP diastolic 45–96
--- NOTE | 2020-07-11 05:12 | NUR ---
ALERT AND ORIENTATED X4 AMBULATES IN THE ROOM STEADY ON HIS LEGS W/O 02 SATS 96% HE REFUSES TO TAKE OFF HIS BELT AND LORIE STATES HE SLEEP WITH THEM ON NO NOTED SOB OR COUGHING THIS 12 HOURS ON THE TELE MONITOR SR OCCASS. SB
[2020-07-11 06:58] LABS: HEMATOCRIT 39 % (39-51); HEMOGLOBIN 12.7 g/dL (13.5-17.5); LYMPHOCYTES # (AUTO) 0.4 /CMM (0.8-4.8); LYMPHOCYTES % (AUTO) 3.5 % (20.0-44.0); MEAN CORPUSCULAR HGB CONC 33 g/dl (31.0-36.0); MEAN CORPUSCULAR VOLUME 95 fL (80-96); MONOCYTES # (AUTO) 0.6 /CMM (0.1-1.30); MONOCYTES % (AUTO) 5.8 % (2.0-12.0); NEUTROPHILS # (AUTO) 9.3 /CMM (1.8-8.9); NEUTROPHILS % (AUTO) 90.7 % (43.0-81.0); PLATELET COUNT (AUTO) 233 /CMM (150-450); RED BLOOD CELL COUNT(AUTO) 4.11 MIL/uL (4.5-6.0); WHITE BLOOD COUNT (AUTO) 10.2 K/uL (4.3-11.0)
--- NOTE | 2020-07-11 07:05 | NUR ---
RN OPENING NOTES RECEIVED PT RESTING IN BED COMFORTABLY , ALERT AND ORIENTED X4. NO S/S OF RESPIRATORY DISTRESS NOTED. BREATHING EVEN AND UNLABORED. PATIENT ON 2LPM VIA NC AND TOLERATING WELL. PATIENT ON CARDIAC TELE MONITOR SHOWING NORMAL SINUS RYTHYM. IV ACCESS NOTED ON R WRIST # 22 SL INTACT AND PATENT, FLUSHING WELL; NO S/S OF REDNESS OR INFILTRATION NOTED. SAFETY PRECAUTIONS IMPLEMENTED BED LOCKED AND IN LOWEST POSITION. SIDE RAILSX2 AND CALL LIGHT WITHIN EASY REACH. WILL CONTINUE TO MONITOR.
[2020-07-11 08:13] LABS: ALANINE AMINOTRANSFERASE 9 U/L (12-78); ALBUMIN 3.7 g/dL (3.4-5.0); ALKALINE PHOSPHATASE 50 U/L (46-116); ASPARTATE AMINOTRANSFERASE 8 U/L (15-37); BILIRUBIN,TOTAL 0.3 mg/dL (0.2-1.0); CALCIUM, SERUM 9.9 mg/dL (8.5-10.1); CARBON DIOXIDE 24 mmol/L (21-32); CHLORIDE 104 mmol/L (98-107); CREATININE 0.9 mg/dL (0.6-1.3); GLUCOSE 114 mg/dL (74-106); MAGNESIUM 2.3 mg/dL (1.8-2.4); POTASSIUM 4.2 mmol/L (3.5-5.1); SODIUM SERUM 136 mmol/L (136-145); UREA NITROGEN, BLOOD 21 mg/dL (7-18)
[2020-07-11 09:08] LABS: C-REACTIVE PROTEIN < 0.2 mg/dL (0.0-0.9)
[2020-07-11] MEDS: CARBIDOPA/LEVODOPA 25/100 MG 1 UDTAB PO SCH ×3 (09:52→16:48)
[2020-07-11] MEDS: FINASTERIDE (5 MG) 5 MG TABLET PO SCH (09:52)
[2020-07-11] MEDS: methylPREDNISolone SOD SUCC 40 MG/ML VIAL IV SCH ×4 (09:52→20:46)
[2020-07-11] MEDS: LITHIUM CARBONATE (300 MG CAP) 300 MG CAPSULE PO SCH ×2 (09:52→21:10)
[2020-07-11] MEDS: ASPIRIN 325 MG TABLET PO SCH (09:52)
[2020-07-11] MEDS: BUPROPION XL 150 MG TAB.ER.24 PO SCH (09:52)
[2020-07-11] MEDS: GABAPENTIN 100 MG CAPSULE PO SCH ×3 (09:53→16:48)
[2020-07-11] MEDS: OXYBUTYNIN CHLORIDE 5 MG TABLET PO SCH ×2 (09:53→16:47)
[2020-07-11] MEDS: FLUTICASONE/VILANTEROL 1 EACH BLST.W.DEV IH SCH (09:54)
[2020-07-11] MEDS: BRIMONIDINE TARTRATE OPHT SOLN 5 ML BOTTLE EACHEYE SCH ×3 (09:54→16:56)
[2020-07-11] MEDS: TIMOLOL 0.5% SOLN OPHTH 5 ML BOTTLE RIGHTEYE SCH ×2 (09:55→16:56)
[2020-07-11] MEDS: FLUTICASONE PROPIONATE 16 GM BOTTLE NS SCH ×2 (09:55→16:55)
[2020-07-11] MEDS: DORZOLAMIDE OPTH 2% 10 ML BOTTLE RIGHTEYE SCH ×2 (09:56→16:56)
[2020-07-11] MEDS: DRONEDARONE HYDROCHLORIDE 400 MG TABLET PO SCH ×2 (12:00→17:25)
[2020-07-11] MEDS: APIXABAN 5 MG TABLET PO SCH ×2 (12:43→16:48)
--- NOTE | 2020-07-11 12:51 | NUR ---
called pharmacy [facility] is not stocked.
[2020-07-11] MEDS: IV NS 0.9% 1,000 ML IV PRN (13:39)
--- NOTE | 2020-07-11 16:26 | NUR ---
RN NOTES TRANSFER PATIENT GAVE REPORT TO ANA .
--- NOTE | 2020-07-11 16:35 | NUR ---
TELE/RN NOTE THE PATIENT IS RECEIVED FROM VELMA. DENIES PAIN. RESPIRATION REGULAR AND UNLABORED. DENIES SOB. THE PATIENT IS IN NO APPARENT DISTRESS. GAVE ORIENTATION TO THE ROOM/UNIT AND THE PATIENT VERBALIZED UNDERSTANDING. WILL CONTINUE TO MONITOR.
[2020-07-11] MEDS: IPRATROPIUM NEB FS 0.5 MG/2.5 ML AMPUL.NEB NEB SCH ×2 (17:35→20:02)
--- NOTE | 2020-07-11 18:37 | NUR ---
TELE/RN NOTE THE PATIENT IS ALERT AND ORIENTED X4. IN ROOM AIR AND DENIES SOB. RESPIRATION REGULAR AND UNLABORED. DENIES PAIN. EXTERNAL TELE BOX READING IS SR. RIGHT HAND G 20 PATENT AND NS INFUSING AT 70ML/HR. NO S/S INFILTRATION NOTED. BED LOW AND LOCKED. SIDE RAILS UP X2. CALL LIGHT WITHIN REACH. WILL ENDORSE TO NIGHTS SHIFT.
--- NOTE | 2020-07-11 19:30 | NUR ---
A R COLLECTIONS REP OPENING NOTE RECEIVED PATIENT IN BED. A/OX4. TOLERATING ROOM AIR AT THIS TIME. RESPIRATIONS ARE EVEN AND UNLABORED. NO S/S SOB NOTED. NO C/O PAIN AT THIS TIME. EXTERNAL TELE MONITOR CONTROLLED AFIB HR 70S. IN NO APPARENT DISTRESS. IV ACCESS IN RIGHT HAND#20 PATENT AND SALINE LOCKED. BED IS LOW AND LOCKED, HOB ELEVATED IN SEMI FOWLERS, SIDE RIALS UP X2. CALL LIGHT WITHIN REACH.W ILL CONTINUE TO MONITOR.
--- NOTE | 2020-07-11 19:42 | NUR ---
HAND ROUNDER NOTES RECEIVED PATIENT AWAKE AL;ERT ORIENTED X4. CALM RESTING COMFORTABLY, NO SIGNS OF ACUTE RESPIRATORY OR CARDIAC DISTRESS NOTED. TELE MONITOR READS SINUS. DENIES ANY PAIN OR DISCOMFORT. KEPT COMFORATBLE. SAFETY MEASURES IN PLACE, ASPIRATION PRECAUTION EMPHASIZED, IV ACCESS INTACT AND PATENT, CALL LIGHT WITHIN EASY REACH. ALL NEEDS ANTICIPATED, WILL CONTINUE TO MONITOR ACCORDINGLY.
--- NOTE | 2020-07-11 20:26 | NUR ---
RN NOTES REPORT GIVEN TO KIYA DOVE FOR CONTINUITY OF CARE.
--- NOTE | 2020-07-11 20:36 | NUR ---
GI TECH NOTE INFORMED ELECTRICAL CONTROL ASSEMBLER MD DR. DALIA CERDA THAT PATIENT BP IS 82/45 HR 66. AND IF HE WOULD LIKE TO ORDER BOLUS. PATIENT WAS ALSO REQUESTING IMODIUM D/T 2 EPISODES OF DIARRHEA TODAY. MD TELEPHONE ORDERS IMODIUM Q4HR PRN AND BOLUS 500ML OF NS AND IF PATIENT BP STILL REMAINS LOW, MAY REPEAT 500ML BOLUS OF NS. ORDERS READ BACK NOTED AND CARRIED OUT. WILL CONTINUE TO MONITOR.
[2020-07-11] MEDS: LOPERAMIDE HCL (2 MG CAP) 2 MG CAPSULE PO PRN (20:44)
[2020-07-11] MEDS: TAMSULOSIN 0.4 MG CAP.SR.24H PO SCH (20:46)
[2020-07-11] MEDS ORDERED: IV NS 0.9% 500 ML IV ONE ×2 (21:00→23:30)
[2020-07-11] MEDS ORDERED: LOPERAMIDE HCL UDC(2 MG/10 ML) 2 MG/10 ML UDC PO PRN (21:00)
[2020-07-11] MEDS: ARIPIPRAZOLE 5 MG TABLET PO SCH (21:11)
[2020-07-11] MEDS: LATANOPROST EYE DROP 0.005% 2.5 ML BOTTLE EACHEYE SCH (21:13)
[2020-07-11] MEDS: TRAZODONE 50 MG TABLET PO SCH (22:00)
[2020-07-11] MEDS: LEVOFLOXACIN 500 MG /D5W 100ML 500 MG in PREMIX 1 EA IV SCH (22:41)
--- NOTE | 2020-07-11 23:18 | NUR ---
telephonic rn note patient refused trazadone. informed risk and benefits, patient continues to refuse. will continue to monitor.
--- NOTE | 2020-07-11 23:20 | NUR ---
telephonic nurse note reassessed patient blood pressure. it continues to be low. sitting bp was taken 3 times on right arm 98/38 hr 85, 93/53 hr 66, 114/48 hr 85. standing bp taken twice showed an even more decrease in bp 59/37 hr 83. 72/ 36 hr 71. laying bp taken 74/41. at this time i informed the patient to stay laying or sitting on the bed and not to get up d/t risk of fainting or falling. patient informed and acknowledged not to get up. reeducated in call light usage. bed alarm on. informed will bring another bolus of fluid as doctor has ordered d/t bp still remaining low. will continue to monitor.
[2020-07-12] VITALS: BP 91/67
[2020-07-12] MEDS: IPRATROPIUM NEB FS 0.5 MG/2.5 ML AMPUL.NEB NEB SCH ×4 (01:24→19:30)
--- NOTE | 2020-07-12 01:31 | NUR ---
telegraph inspector note RT informed me patient does not want EKG taken at this time. he would like it to be done in the AM at 0800 d/t patient has not sleep. will endorse to morning shift.
[2020-07-12] MEDS: HYDROCODONE/APAP 5/325MG TABLET PO PRN (01:35)
--- NOTE | 2020-07-12 01:35 | NUR ---
senior telecommunications technician notes administered norco 5/325 for pain 06/03 in back. bp now 102/68. will continue to monitor.
[2020-07-12 04:00] VITALS: BP 110/63
--- NOTE | 2020-07-12 04:48 | NUR ---
RT Pt refused EKG. RN aware
--- NOTE | 2020-07-12 07:20 | NUR ---
FLOOR MOLDER NOTES RECEIVED T IN BED, AWAKE, A/OX2-3. TOLERATING RA, WITH NO ACUTE RESPIRATORY DISTRESS NOTED. ON TELEMONITORING AFIB 57. PT DENIES ANY PAIN OR DISCOMFORT WELL. PT DENIES ANY CONCERNS OR QUESTIONS AT THIS TIME. IVF NS AT 70ML/HR TO R HAND G20 SL, INTACT AND FLUID AND INFUSING WELL. PT KEPT COMFORTABLE IN BED. CALL LIGHT KEPT WITHIN REACH. PT'S BED IN LOWEST, LOCKED POSITION WITH SRX3. WILL CONTINUE PLAN OF CARE.
--- NOTE | 2020-07-12 07:30 | NUR ---
VACUUM FURNACE OPERATOR CLOSING NOTE PATIENT IN BED. A/OX4. PATIENT HAD AN EPISODE OF SOB AFTER AMBULATING BACK TO THE BED FROM THE RESTROOM. PLACED ON O2 UNTIL O2 SAT 100% PATIENT NOW TOLERATING ROOM AIR. MANAGED PAIN WITH NORCO 5/325. EXTERNAL TELE MONITOR CONTROLLED AFIB. IV ACCESS MAINTAINED IN RIGHT HAND#20 RUNNING NS@75ML/HR. BED REMAINS LOW AND LOCKED, HOB ELEVATED IN SEMI FOWLERS, SIDE RIALS UP X2. CALL LIGHT WITHIN REACH. WILL ENDORSE TO NEXT SHIFT.
[2020-07-12 08:00] VITALS: BP_SYST 121; BP_SYST 92; BP_DIAS 68
[2020-07-12] MEDS: CARBIDOPA/LEVODOPA 25/100 MG 1 UDTAB PO SCH ×3 (08:53→17:00)
[2020-07-12] MEDS: GABAPENTIN 100 MG CAPSULE PO SCH ×3 (08:53→17:04)
[2020-07-12] MEDS: BUPROPION XL 150 MG TAB.ER.24 PO SCH (08:53)
[2020-07-12] MEDS: OXYBUTYNIN CHLORIDE 5 MG TABLET PO SCH ×2 (08:54→17:00)
[2020-07-12] MEDS: ASPIRIN 325 MG TABLET PO SCH (08:54)
[2020-07-12] MEDS: LITHIUM CARBONATE (300 MG CAP) 300 MG CAPSULE PO SCH ×2 (08:54→21:07)
[2020-07-12] MEDS: methylPREDNISolone SOD SUCC 40 MG/ML VIAL IV SCH ×3 (08:54→17:02)
[2020-07-12] MEDS: FINASTERIDE (5 MG) 5 MG TABLET PO SCH (08:54)
[2020-07-12] MEDS: APIXABAN 5 MG TABLET PO SCH ×2 (08:55→17:03)
[2020-07-12] MEDS: DRONEDARONE HYDROCHLORIDE 400 MG TABLET PO SCH ×2 (08:56→17:06)
[2020-07-12] MEDS: FLUTICASONE/VILANTEROL 1 EACH BLST.W.DEV IH SCH (09:00)
[2020-07-12] MEDS: FLUTICASONE PROPIONATE 16 GM BOTTLE NS SCH ×2 (09:00→17:32)
--- NOTE | 2020-07-12 09:00 | NUR ---
CUSTOMER RETENTION SPECIALIST NOTES PT REFUSED BREO AND FLUTICASONE SPRAY. PER PT HE DOESN'T NEED IT AT THIS TIME. WILL CONTINUE PLAN OF CARE.
[2020-07-12] MEDS: BRIMONIDINE TARTRATE OPHT SOLN 5 ML BOTTLE EACHEYE SCH ×3 (09:07→17:32)
[2020-07-12] MEDS: TIMOLOL 0.5% SOLN OPHTH 5 ML BOTTLE RIGHTEYE SCH ×2 (09:08→17:33)
[2020-07-12] MEDS: DORZOLAMIDE OPTH 2% 10 ML BOTTLE RIGHTEYE SCH ×2 (09:10→17:37)
--- NOTE | 2020-07-12 10:23 | NUR ---
LOADING SHOVEL OILER NOTES OBTAINED CTA CONSENT FROM THE PT. PT MADE AWARE PROCEDURE WILL BE AROUND 12PM. WILL CONTINUE TO MONITOR.
[2020-07-12] MEDS ORDERED: IOHEXOL-350 100 ML VIAL IV ONE (12:50)
[2020-07-12] MEDS ORDERED: IV NS 0.9% 250 ML IV ONE (12:51)
--- NOTE | 2020-07-12 12:57 | NUR ---
GLUE SPRAYER NOTES PT LEFT THE UNIT FOR CTA PROCEDURE AT 1255 VIA WHEELCHAIR.
[2020-07-12] MEDS ORDERED: METOPROLOL TARTRATE INJ 5 MG/5 ML AMPUL IVP PRN (13:00)
[2020-07-12] MEDS ORDERED: NITROGLYCERIN 0.4 MG/TAB BOTTLE SL ONE (13:00)
--- NOTE | 2020-07-12 13:34 | NUR ---
RN NOTES; Post CTA; Patient able to tolerate the procedure. Patient denies pain or discomfort at this time. Transferred back to patient room, report given to March RN.
--- NOTE | 2020-07-12 13:50 | NUR ---
MS RN NOTES PT JUST CAME BACK FROM THE PROCEDURE. PT DENIES ANY PAIN OR DISCOMFORT. PT KEPT COMFORTABLE IN BED. RESTARTED IVF NS AT 70ML/HR TO RAC G18, INTACTAND FLUID INFUSING WELL. WILL CONTINUE PLAN OF CARE.
[2020-07-12 16:00] VITALS: BP 98/72
[2020-07-12] MEDS: IV NS 0.9% 1,000 ML IV PRN (16:58)
--- NOTE | 2020-07-12 18:33 | NUR ---
MS RN NOTES PT REMAINS IN BED, INTERMITTENTLY DOZING OFF, A/OX2-3. TOLERATING RA, WITH NO ACUTE RESPIRATORY DISTRESS NOTED. PT DENIES ANY PAIN OR DISCOMFORT WELL. IVF NS AT 70ML/HR TO R HAND G20 SL, INTACT AND FLUID AND INFUSING WELL. ALL NEEDS AND CARE ATTENDED. PT KEPT COMFORTABLE IN BED. CALL LIGHT KEPT WITHIN REACH. PT'S BED IN LOWEST, LOCKED POSITION WITH SRX3. WILL ENDORSE TO INCOMING NIGHT NURSE FOR DINORA.
--- NOTE | 2020-07-12 19:30 | NUR ---
VRT MECHANIC OPENING NOTE RECEIVED PATIENT IN BED. A/OX4. TOLERATING ROOM AIR AT THIS TIME. RESPIRATIONS ARE EVEN AND UNLABORED. NO S/S SOB NOTED. NO C/O PAIN AT THIS TIME IN NO APPARENT DISTRESS. IV ACCESS IN RIGHT HAND #20 PATENT AND SALINE LOCKED. AND IN LAC#18 RUNNING NS@70ML/HR. BED IS LOW AND LOCKED, HOB ELEVATED IN SEMI FOWLERS, SIDE RIALS UP X2. BED ALARM ON. CALL LIGHT WITHIN REACH. INFORMED TO PRESS CALL LIGHT WITH HE WANTS TO GET UP. WILL CONTINUE TO MONITOR.
[2020-07-12 20:00] VITALS: BP 95/57
--- NOTE | 2020-07-12 20:58 | NUR ---
RT pt refused tx. notified KIYA Pa
[2020-07-12] MEDS: LEVOFLOXACIN 500 MG /D5W 100ML 500 MG in PREMIX 1 EA IV SCH (21:05)
[2020-07-12] MEDS: TAMSULOSIN 0.4 MG CAP.SR.24H PO SCH (21:07)
[2020-07-12] MEDS: ARIPIPRAZOLE 5 MG TABLET PO SCH (21:07)
[2020-07-12] MEDS: LATANOPROST EYE DROP 0.005% 2.5 ML BOTTLE EACHEYE SCH (21:08)
[2020-07-12] MEDS: TRAZODONE 50 MG TABLET PO SCH (22:00)
--- NOTE | 2020-07-12 22:07 | NUR ---
ms rn note patient refused trazadone. informed of benefits and risk. continues to refuse. will continue to monitor.
[2020-07-13] MEDS: IPRATROPIUM NEB FS 0.5 MG/2.5 ML AMPUL.NEB NEB SCH ×4 (01:30→19:16)
--- NOTE | 2020-07-13 07:30 | NUR ---
PHARMACOGENETICIST CLOSING NOTE PATIENT IN BED. A/OX3. PATIENT IS COMPLAINING OF FEELING SOB, PLACED ON O2 BY ONCOMING RN. NO C/O PAIN NOTE T/O SHIFT. NO APPARENT DISTRESS NOTED. IV ACCESS MAINTAINED IN RIGHT HAND #20 PATENT AND SALINE LOCKED. AND IN LAC#18 RUNNING NS@70ML/HR. BED REMAINS LOW AND LOCKED, HOB ELEVATED IN SEMI FOWLERS, SIDE RIALS UP X2. BED ALARM ON. CALL LIGHT WITHIN REACH.WILL ENDORSE TO NEXT SHIFT.
--- NOTE | 2020-07-13 07:30 | NUR ---
MS RN NOTES RECEIVED PATIENT IN BED ALERT AND ORIENTED X3. NO SOB. DENIES ANY C/O PAIN NOR DISCOMFORT AT THIS TIME. RIGHT HAND # 20 AND LEFT AC # 18 INFUSING NS AT 70 ML/HR KIMMIE WELL. PATIENT DENIES ANY C/O OF NAUSEA/DIZZINESS/HEADACHE. BED IN LOWEST POSITION, LOCKED. BED ALARM ON. CALL LIGHT WITHIN REACH.
--- NOTE | 2020-07-13 07:49 | NUR ---
PT REFUSED RESP TX ATT. NO S/S OF SOB NOTED. BENEFITS AND CONTRAINDICATIONS EXPLAINED. WILL CONT TO MONITOR Addendum: 07/13/20 at 0750 by JUSTINA DE LA FUENTE RT Amended: Links added.
[2020-07-13 08:00] VITALS: BP 118/74
[2020-07-13] MEDS ORDERED: APIXABAN 5 MG TABLET PO SCH (09:30)
[2020-07-13] MEDS: methylPREDNISolone SOD SUCC 40 MG/ML VIAL IV SCH ×2 (09:57→15:30)
[2020-07-13] MEDS: ASPIRIN 325 MG TABLET PO SCH (09:57)
[2020-07-13] MEDS: LITHIUM CARBONATE (300 MG CAP) 300 MG CAPSULE PO SCH ×2 (09:57→21:08)
[2020-07-13] MEDS: OXYBUTYNIN CHLORIDE 5 MG TABLET PO SCH ×2 (09:57→16:49)
[2020-07-13] MEDS: FINASTERIDE (5 MG) 5 MG TABLET PO SCH (09:57)
[2020-07-13] MEDS: GABAPENTIN 100 MG CAPSULE PO SCH ×3 (09:58→16:48)
[2020-07-13] MEDS: CARBIDOPA/LEVODOPA 25/100 MG 1 UDTAB PO SCH ×3 (09:58→16:49)
[2020-07-13] MEDS: DRONEDARONE HYDROCHLORIDE 400 MG TABLET PO SCH ×2 (09:58→16:49)
[2020-07-13] MEDS: BUPROPION XL 150 MG TAB.ER.24 PO SCH (09:58)
[2020-07-13] MEDS: APIXABAN 5 MG TABLET PO SCH ×2 (09:59→16:49)
[2020-07-13] MEDS: FLUTICASONE/VILANTEROL 1 EACH BLST.W.DEV IH SCH (10:05)
[2020-07-13] MEDS: FLUTICASONE PROPIONATE 16 GM BOTTLE NS SCH ×2 (10:06→16:50)
[2020-07-13] MEDS: BRIMONIDINE TARTRATE OPHT SOLN 5 ML BOTTLE EACHEYE SCH ×3 (10:06→16:51)
[2020-07-13] MEDS: TIMOLOL 0.5% SOLN OPHTH 5 ML BOTTLE RIGHTEYE SCH ×2 (10:07→16:51)
[2020-07-13] MEDS: DORZOLAMIDE OPTH 2% 10 ML BOTTLE RIGHTEYE SCH ×2 (10:07→16:51)
[2020-07-13] MEDS: IV NS 0.9% 1,000 ML IV PRN (10:14)
[2020-07-13] MEDS: LOPERAMIDE HCL (2 MG CAP) 2 MG CAPSULE PO PRN ×2 (12:56→21:07)
[2020-07-13 16:00] VITALS: BP 144/54
--- NOTE | 2020-07-13 19:00 | NUR ---
MS RN NOTES RECEIVED PATIENT IN BED ALERT AND ORIENTED X3. NO S/S OF RESPIRATORY DISTRESS. DENIES ANY C/O PAIN NOR DISCOMFORT AT THIS TIME. RIGHT HAND # 20 AND LEFT AC # 18 INFUSING NS AT 70 ML/HR KIMMIE WELL. AMBULATORY WITH FWW WITH ASSIST. BED IN LOWEST POSITION, LOCKED. BED ALARM ON. CALL LIGHT WITHIN REACH. IN NO APPARENT DISTRESS.
[2020-07-13 20:00] VITALS: BP 96/50
--- NOTE | 2020-07-13 20:00 | NUR ---
MS/RN OPENING NOTE Patient awake in bed, A/O x3, pleasant. Patient is ambulatory with standby assist. Face is symmetrical. Mucous membranes pink and moist. No JVD. Pulses 2+. Skin warm, pink, dry, intact, appropriate for ethnicity. IV site right hand 20g running NS @ 70 ml/hr, no signs of infiltration. Patient voids via BRP. Urine clear, yellow, no sediment. Breathing even, clear, unlabored. No signs of acute distress or SOB. Bed in low position, wheels locked, side rails up x2, call light within reach.
[2020-07-13] MEDS ORDERED: LEVOFLOXACIN (500MG) 500 MG TABLET PO SCH (21:00)
[2020-07-13] MEDS: ARIPIPRAZOLE 5 MG TABLET PO SCH (21:06)
[2020-07-13] MEDS: HYDROCODONE/APAP 5/325MG TABLET PO PRN (21:06)
[2020-07-13] MEDS: TAMSULOSIN 0.4 MG CAP.SR.24H PO SCH (21:07)
[2020-07-13] MEDS: LATANOPROST EYE DROP 0.005% 2.5 ML BOTTLE EACHEYE SCH (21:18)
[2020-07-13] MEDS: TRAZODONE 50 MG TABLET PO SCH (21:19)
--- NOTE | 2020-07-13 21:58 | NUR ---
MS/RN NOTE Patient refused trazadone at this time. Patient states "I don't use that." DC IV site LFA d/t bleeding from site. Patient c/o low back pain level 7, aching and throbbing. Administered PRN norco as ordered. BP 96/50 P79 R18 T98.2 O2 sat 95%. Will continue to monitor.
[2020-07-14] MEDS: IPRATROPIUM NEB FS 0.5 MG/2.5 ML AMPUL.NEB NEB SCH ×4 (00:46→14:26)
--- NOTE | 2020-07-14 06:05 | NUR ---
MS/RN CLOSING NOTE Patient asleep in bed, A/O x3. Patient is ambulatory with standby assist. Pulses 2+. Skin warm, pink, dry, intact, appropriate for ethnicity. IV site right hand 20g running NS @ 70 ml/hr, no signs of infiltration. Patient voids via BRP. Urine clear, yellow, no sediment. Breathing even, clear, unlabored. No signs of acute distress or SOB. Bed in low position, wheels locked, side rails up x2, call light within reach. Will endorse to oncoming nurse.
--- NOTE | 2020-07-14 07:25 | NUR ---
RN OPENING NOTES PATIENT IN BED RESTING. A/OX3. NOT IN ANY FORM OF DISTRESS. NO SOB. DENIED PAIN OR DISCOMFORT AT THIS TIME. IV ACCESS INTACT AND PATENT. KEPT PATIENT SAFE AND COMFORTABLE. BED IN LOW/LOCKED POSITION, SIDERAILS UPX2, CALL LIGHT IN REACH. WILL CONT TO MONITOR ACCORDINGLY
--- NOTE | 2020-07-14 07:39 | NUR ---
RT PT REF BREATHING TX AT THE MOMENT. NO RESP DISTRESS OR SOB NOTED.
[2020-07-14 08:00] VITALS: BP 103/64
[2020-07-14] MEDS: CARBIDOPA/LEVODOPA 25/100 MG 1 UDTAB PO SCH ×3 (08:40→17:23)
[2020-07-14] MEDS: ASPIRIN 325 MG TABLET PO SCH (08:40)
[2020-07-14] MEDS: LITHIUM CARBONATE (300 MG CAP) 300 MG CAPSULE PO SCH (08:40)
[2020-07-14] MEDS: OXYBUTYNIN CHLORIDE 5 MG TABLET PO SCH ×2 (08:41→17:24)
[2020-07-14] MEDS: GABAPENTIN 100 MG CAPSULE PO SCH ×3 (08:41→17:24)
[2020-07-14] MEDS: APIXABAN 5 MG TABLET PO SCH ×2 (08:42→17:24)
[2020-07-14] MEDS: BUPROPION XL 150 MG TAB.ER.24 PO SCH (08:42)
[2020-07-14] MEDS: methylPREDNISolone SOD SUCC 40 MG/ML VIAL IV SCH (08:42)
[2020-07-14] MEDS: FLUTICASONE/VILANTEROL 1 EACH BLST.W.DEV IH SCH (08:44)
[2020-07-14] MEDS: BRIMONIDINE TARTRATE OPHT SOLN 5 ML BOTTLE EACHEYE SCH ×3 (08:44→17:29)
[2020-07-14] MEDS: FLUTICASONE PROPIONATE 16 GM BOTTLE NS SCH ×2 (08:44→17:29)
[2020-07-14] MEDS: DRONEDARONE HYDROCHLORIDE 400 MG TABLET PO SCH ×2 (08:49→17:26)
[2020-07-14] MEDS: FINASTERIDE (5 MG) 5 MG TABLET PO SCH (08:50)
[2020-07-14] MEDS: TIMOLOL 0.5% SOLN OPHTH 5 ML BOTTLE RIGHTEYE SCH ×2 (08:54→17:29)
[2020-07-14] MEDS: DORZOLAMIDE OPTH 2% 10 ML BOTTLE RIGHTEYE SCH ×2 (08:55→17:30)
[2020-07-14] MEDS: LOPERAMIDE HCL (2 MG CAP) 2 MG CAPSULE PO PRN (09:56)
--- NOTE | 2020-07-14 18:00 | NUR ---
DISCHARGED PATIENT IN STABLE CONDITION PICKED UP BY AMBULANCE. REPORT GIVEN TO IFEOMA HUERTAS AT [facility], [place] INSTRUCTIONS GIVEN, VERBALIZED UNDERSTANDING. ALL BELONGINGS RETURNED TO PATIENT. IV ACCESS REMOVED, APPPLIED PRESSURE. NO COMPLICATIONS. NAMEBAND REMOVED.
== END 2020-07-14 18:22 | DRG 190 ==
LOC: ER 12:48 → TELE1 15:39 → TELE 07-11 16:29 → MED 07-12 10:06
PROVIDERS: ADMIT Internal Medicine Nephrology; ATTEND Internal Medicine Nephrology
DX: J44.1 Chronic obstructive pulmonary disease with (acute) exacerbation (principal); J18.9 Pneumonia, unspecified organism; J98.11 Atelectasis; M48.56XA Collapsed vertebra, not elsewhere classified, lumbar region, initial encounter for fracture; G20 Parkinson's disease; F41.9 Anxiety disorder, unspecified; I48.0 Paroxysmal atrial fibrillation; N40.0 Benign prostatic hyperplasia without lower urinary tract symptoms; M19.90 Unspecified osteoarthritis, unspecified site; Z87.891 Personal history of nicotine dependence; Z86.73 Personal history of transient ischemic attack (TIA), and cerebral infarction without residual deficits; Z82.3 Family history of stroke; Z79.899 Other long term (current) drug therapy; Z79.82 Long term (current) use of aspirin; Z79.51 Long term (current) use of inhaled steroids; F31.9 Bipolar disorder, unspecified; I25.10 Atherosclerotic heart disease of native coronary artery without angina pectoris; H40.9 Unspecified glaucoma; R26.9 Unspecified abnormalities of gait and mobility; R07.89 Other chest pain; J44.0 Chronic obstructive pulmonary disease with (acute) lower respiratory infection
CPT/HCPCS: 36415; 36600; 71045-TC; 75574; 80048-TC; 80053-TC; 80076-TC; 82803-TC; 83605-TC; 83735-TC; 83880; 84100-TC; 84484-TC; 85025-TC; 85378-TC; 86140-TC; 87040-TC; 87081-TC; 93307-TC; 94760-TC; 94799-TC; 97116-TC; 97530-TC; A4216; C9803-CS; G0378; J0696; J1650; J1956; J2920; J2930; J7030; J7040; J7042; J7050; J7060; Q9967; U0003-CS

== ENCOUNTER 2020-09-08 09:15 | Inpatient (IN) | payer MEDICARE, OTHER ==
[~2020-09-08] VITALS: Ht 185.4 cm; Wt 77.1 kg
[~2020-09-08 09:15] MED LIST changes: +ALBU8.5H8 IH; +ALPR0.25 PO; -ARIP10TA9 PO; +ARIP5TAB10 PO; -BUPR150T12 PO; +BUPR300T52 PO; +CARB-93 PO; +CRAN3875 PO; +CRAN425C6 PO; -DORZ10DR11 EACHEYE; +DORZ10DR13 RIGHTEYE; +GABA-532 PO; -GABA-534 PO; +LITH600C PO; +MELA3TAB41 PO; +TIOT18CA3 IH; +TRAZ-182 PO
--- NOTE | 2020-09-08 09:20 | NUR ---
BIBRA39 FROM [facility] FOR SHORTNESS OF BREATH AND CHEST PAIN. ASP 162 AND NITRO X 1 GIVEN IMAGING SCIENCE PROFESSOR. PATIENT A/OX4, BREATHING RAPID AND SLIGHTLY LABORED, ATTACHED TO THE CONTENT PUBLISHER.
[2020-09-08] MEDS ORDERED: ALBUTEROL FS 2.5 MG/3 ML VIAL.NEB NEB ONE (09:30)
[2020-09-08] MEDS ORDERED: AZITHROMYCIN 500 MG in IV D5W 250 ML IV ONE (09:30)
[2020-09-08] MEDS ORDERED: CEFTRIAXONE 1GM BAG (ER ONLY) 50 ML IV ONE (09:30)
[2020-09-08] MEDS ORDERED: IPRATROPIUM NEB FS 0.5 MG/2.5 ML AMPUL.NEB NEB ONE (09:30)
--- NOTE | 2020-09-08 09:35 | NUR ---
BLOOD DRAWN AND SENT TO LAB. URINE OBTAINED VIA STRAIGHT CATHETER, USING STERILE TECHNIQUE.
[2020-09-08] MEDS ORDERED: ALBUTEROL FS 2.5 MG/3 ML VIAL.NEB ONE (09:36)
[2020-09-08] MEDS ORDERED: IPRATROPIUM NEB FS 0.5 MG/2.5 ML AMPUL.NEB ONE (09:37)
--- NOTE | 2020-09-08 09:40 | NUR ---
MOVE SHEET SUBMITTED AND CALLED FOR TELE BED.
--- NOTE | 2020-09-08 09:55 | NUR ---
COVID SWAB SENT.
[2020-09-08 10:03] LABS: BASOPHILS # (AUTO) 0.1 /CMM (0.0-0.2); BASOPHILS % (AUTO) 0.5 % (0.0-2.0); EOSINOPHILS % (AUTO) 3.1 % (0.0-6.0); HEMATOCRIT 38 % (39-51); LYMPHOCYTES # (AUTO) 0.8 /CMM (0.8-4.8); LYMPHOCYTES % (AUTO) 8.4 % (20.0-44.0); MEAN CORPUSCULAR HGB CONC 32 g/dl (31.0-36.0); MEAN CORPUSCULAR VOLUME 94 fL (80-96); MONOCYTES # (AUTO) 0.8 /CMM (0.1-1.30); MONOCYTES % (AUTO) 8.2 % (2.0-12.0); NEUTROPHILS # (AUTO) 7.8 /CMM (1.8-8.9); NEUTROPHILS % (AUTO) 79.8 % (43.0-81.0); PLATELET COUNT (AUTO) 371 /CMM (150-450); RED BLOOD CELL COUNT(AUTO) 3.98 MIL/uL (4.5-6.0); WHITE BLOOD COUNT (AUTO) 9.8 K/uL (4.3-11.0)
[2020-09-08 10:07] LABS: APPEARANCE,URINE CLEAR (CLEAR); BILIRUBIN,URINE NEGATIVE (NEGATIVE); BLOOD, URINE NEGATIVE Ery/uL (NEGATIVE); COLOR,URINE YELLOW (YELLOW); KETONES,URINE NEGATIVE (NEGATIVE); LEUKOCYTE ESTERASE ,URINE NEGATIVE (NEGATIVE); NITRITE, URINE NEGATIVE (NEGATIVE); PROTEIN,URINE NEGATIVE (NEGATIVE); UGLUCOSE NEGATIVE (NEGATIVE); UROBILINOGEN,URINE 0.2 EU/dL (0.2)
[2020-09-08 10:09] LABS: CALCIUM, SERUM 9.5 mg/dL (8.5-10.1); CARBON DIOXIDE 30 mmol/L (21-32); CHLORIDE 103 mmol/L (98-107); CREATININE 0.8 mg/dL (0.6-1.3); GLUCOSE 98 mg/dL (74-106); POTASSIUM 3.9 mmol/L (3.5-5.1); SODIUM SERUM 140 mmol/L (136-145); UREA NITROGEN, BLOOD 13 mg/dL (7-18)
--- NOTE | 2020-09-08 10:14 | NUR ---
CALLED DR. CARIAS [phone]
[2020-09-08 10:16] LABS: ALANINE AMINOTRANSFERASE 11 U/L (12-78); ALKALINE PHOSPHATASE 53 U/L (46-116); ASPARTATE AMINOTRANSFERASE 5 U/L (15-37); BILIRUBIN,TOTAL 0.2 mg/dL (0.2-1.0)
[2020-09-08] MEDS ORDERED: APIX5TAB4 PO (10:16)
[2020-09-08] MEDS ORDERED: ACET-2605 PO (10:16)
[2020-09-08] MEDS ORDERED: DRON400T2 PO (10:16)
[2020-09-08] MEDS ORDERED: LOPE2TAB25 PO (10:16)
[2020-09-08] MEDS ORDERED: TRAZ-182 PO (10:16)
--- NOTE | 2020-09-08 10:39 | NUR ---
GOT BED 205.
--- NOTE | 2020-09-08 10:42 | NUR ---
REPORT GIVEN TO NORI HUERTAS FOR DINORA.
[2020-09-08] MEDS ORDERED: ALBUTEROL SULFATE INH 18 GM HFA.AER.AD IH SCH (11:30)
--- NOTE | 2020-09-08 11:33 | NUR ---
PATIENT TAKEN TO RADIOLOGY FOR CT PULMO.
[2020-09-08] MEDS ORDERED: IOHEXOL-350 100 ML VIAL IV ONE (11:37)
[2020-09-08] MEDS ORDERED: IV NS 0.9% 250 ML IV ONE (11:38)
[2020-09-08] MEDS ORDERED: CT SWABBABLE VALVE TRANS SET 1 EA INFUS.SET MC ONE (11:38)
[2020-09-08] MEDS ORDERED: IPRATROPIUM NEB FS 0.5 MG/2.5 ML AMPUL.NEB IH SCH ×2 (12:00→13:30)
--- NOTE | 2020-09-08 12:12 | NUR ---
PATIENT TRANSFERRED TO ROOM 205 VIA ACLS PROTOCOL. PATIENT IN STABLE CONDITION. ENDORSED TO NORI HUERTAS.
--- NOTE | 2020-09-08 12:29 | NUR ---
rn notes pt received from ER. Patients BP in the 86/50 with heart rate of 60. Asymptomatic, eating well, a.o x3. Dr. Devan Menchaca made aware.
[2020-09-08] MEDS: VANCOMYCIN 1.25 GM in IV D5W 250 ML IV SCH (12:48)
[2020-09-08] MEDS: PIPERACILLIN /TAZOBACTAM 4.5 G in IV D5W 50 ML IV SCH ×3 (12:59→23:42)
[2020-09-08] MEDS ORDERED: IV NS 0.9% 500 ML BAG IV ONE (13:00)
[2020-09-08] MEDS: GABAPENTIN 100 MG CAPSULE PO SCH ×2 (13:01→16:14)
[2020-09-08] MEDS ORDERED: ALBUTEROL FS 2.5 MG/3 ML VIAL.NEB IH SCH (13:30)
[2020-09-08] MEDS: OXYBUTYNIN CHLORIDE 5 MG TABLET PO SCH (16:14)
[2020-09-08] MEDS: ALPRAZOLAM 0.25 MG TABLET PO PRN (16:14)
[2020-09-08] MEDS: APIXABAN 5 MG TABLET PO SCH (16:15)
[2020-09-08] MEDS: BRIMONIDINE TARTRATE OPHT SOLN 5 ML BOTTLE EACHEYE SCH (16:16)
[2020-09-08] MEDS: TIMOLOL MAL/DORZOLAM HCL OPHTH 10 ML BOTTLE RIGHTEYE SCH (16:16)
[2020-09-08] MEDS: FLUTICASONE PROPIONATE 16 GM BOTTLE NS SCH (16:16)
[2020-09-08] MEDS: LITHIUM CARBONATE (300 MG CAP) 300 MG CAPSULE PO SCH (17:34)
--- NOTE | 2020-09-08 17:49 | NUR ---
rn notes patient remains on room air, no sob noted, a/0 x4, r ac 18 iv present. Pt bolused with 500 ml of NS. Patient able to take all medications by mouth, bed at the lowest setting, call light within reach, side rails up x2.
--- NOTE | 2020-09-08 19:30 | NUR ---
PAINTER FOREMAN RECEIVE PT IN BED, AWAKE, STABLE A/O X 2 NOT IN DISTRESS, SB 59 HR WATER TREATMENT SPECIALIST. SAFETY MEASURES AT ALL TIMES. WILL CONT TO MONITOR
[2020-09-08 20:00] VITALS: BP 92/61
[2020-09-08] MEDS: methylPREDNISolone SOD SUCC 125 MG/2ML VIAL IV SCH (20:43)
[2020-09-08] MEDS: IPRATROPIUM BROMIDE 14 GM INHALER (or 12.9 GM) IH SCH (20:50)
[2020-09-08] MEDS: ALBUTEROL SULFATE 8 GM HFA.AER.AD IH SCH (20:51)
[2020-09-08] MEDS: LATANOPROST EYE DROP 0.005% 2.5 ML BOTTLE EACHEYE SCH (21:02)
[2020-09-08] MEDS: ARIPIPRAZOLE 5 MG TABLET PO SCH (21:05)
[2020-09-08] MEDS: ACETAMINOPHEN 325 MG TABLET PO PRN (21:05)
[2020-09-08] MEDS: TRAZODONE 50 MG TABLET PO SCH (21:05)
[2020-09-09] VITALS: BP 110/68
[2020-09-09] MEDS: VANCOMYCIN 1.25 GM in IV D5W 250 ML IV SCH (00:17)
[2020-09-09] MEDS: IPRATROPIUM BROMIDE 14 GM INHALER (or 12.9 GM) IH SCH ×4 (00:18→17:01)
[2020-09-09] MEDS: ALBUTEROL SULFATE 8 GM HFA.AER.AD IH SCH ×4 (00:18→17:01)
[2020-09-09] MEDS: ALPRAZOLAM 0.25 MG TABLET PO PRN ×2 (02:13→14:34)
[2020-09-09] MEDS: methylPREDNISolone SOD SUCC 125 MG/2ML VIAL IV SCH ×3 (02:31→16:38)
[2020-09-09 04:00] VITALS: BP 106/56
[2020-09-09] MEDS: PIPERACILLIN /TAZOBACTAM 4.5 G in IV D5W 50 ML IV SCH (05:50)
--- NOTE | 2020-09-09 06:12 | NUR ---
PROFESSIONAL ATHLETES COACH PT MONITORED ACCORDINGLY, KEPT CLEAN, DRY AND COMFORTABLE, NEEDS ATTENDED AND ANTICIPATED, SR 90 HR ON CARDIAC MONITORING, NO S/S OF DISTRESS, REPOSITION EVERY 2 HOURS. RE ASSURED AND RE ORIENT FREQUENTLY. SAFETY MEASURES AT ALL TIMES. ENDORSE NEXT SHIFT POC.
[2020-09-09 06:27] LABS: BASOPHILS % (AUTO) 0.4 % (0.0-2.0); HEMATOCRIT 36 % (39-51); HEMOGLOBIN 11.6 g/dL (13.5-17.5); LYMPHOCYTES # (AUTO) 0.3 /CMM (0.8-4.8); LYMPHOCYTES % (AUTO) 4.2 % (20.0-44.0); MEAN CORPUSCULAR HGB CONC 32 g/dl (31.0-36.0); MEAN CORPUSCULAR VOLUME 94 fL (80-96); MONOCYTES # (AUTO) 0.1 /CMM (0.1-1.30); MONOCYTES % (AUTO) 0.9 % (2.0-12.0); NEUTROPHILS # (AUTO) 6.6 /CMM (1.8-8.9); NEUTROPHILS % (AUTO) 94.5 % (43.0-81.0); PLATELET COUNT (AUTO) 332 /CMM (150-450); RED BLOOD CELL COUNT(AUTO) 3.82 MIL/uL (4.5-6.0)
[2020-09-09 06:46] LABS: CALCIUM, SERUM 9.4 mg/dL (8.5-10.1); MAGNESIUM 2.1 mg/dL (1.8-2.4); PHOSPHORUS 2.8 mg/dL (2.5-4.9); POTASSIUM 4.5 mmol/L (3.5-5.1)
[2020-09-09 08:00] VITALS: BP 107/67
[2020-09-09] MEDS: OXYBUTYNIN CHLORIDE 5 MG TABLET PO SCH ×2 (08:19→16:36)
[2020-09-09] MEDS: APIXABAN 5 MG TABLET PO SCH ×2 (08:20→16:45)
[2020-09-09] MEDS: GABAPENTIN 100 MG CAPSULE PO SCH ×3 (08:21→16:37)
[2020-09-09] MEDS: TAMSULOSIN 0.4 MG CAP.SR.24H PO SCH (08:21)
[2020-09-09] MEDS: FINASTERIDE (5 MG) 5 MG TABLET PO SCH (08:21)
[2020-09-09] MEDS: LITHIUM CARBONATE (300 MG CAP) 300 MG CAPSULE PO SCH ×2 (08:21→16:44)
[2020-09-09] MEDS: FLUTICASONE PROPIONATE 16 GM BOTTLE NS SCH ×2 (08:27→16:10)
[2020-09-09] MEDS: BRIMONIDINE TARTRATE OPHT SOLN 5 ML BOTTLE EACHEYE SCH ×3 (08:28→17:00)
[2020-09-09] MEDS: DRONEDARONE HYDROCHLORIDE 400 MG TABLET PO SCH (08:28)
[2020-09-09] MEDS: ACETAMINOPHEN 325 MG TABLET PO PRN ×2 (08:31→14:34)
[2020-09-09] MEDS: BUPROPION XL 150 MG TAB.ER.24 PO SCH (08:31)
[2020-09-09] MEDS: TIMOLOL MAL/DORZOLAM HCL OPHTH 10 ML BOTTLE RIGHTEYE SCH ×2 (11:33→16:37)
--- NOTE | 2020-09-09 13:00 | NUR ---
PT'S IV HEPLOCK GOT PULLED OUT AND WE ARE REINSERTING A NEW ONE.DELAYING SOLUMEDROL IV ADMINISTRATION.
--- NOTE | 2020-09-09 14:08 | NUR ---
07:30 Report received from night RN. Patient alert, awake and oriented x 2, with periods of confusion, patient verbally responsive, able to make needs known. No s/s of distress or discomfort noted, no SOB. Patient had breakfast, tolerated well. Due medications received as ordered, tolerated well. Patient pulled out IV, reinserted a new one on right hand 24 g, no s/s of infiltration noted, no redness, no edema noted, patent, flushes easily, patient tolerated well. Patient assisted with lunch, pt. consumed 90% of meal. HOB elevated for aspiration precaution, tolerated well. Patient turned and repositioned every 2 hours, tolerated well. Good pericare provided, linens changed. Patient seen by PT, tolerated well. Fall precautions observed, bed locked and in lowest position. Patient reminded to use call light. Will continue to monitor patient.
[2020-09-09 16:00] VITALS: BP 118/60
--- NOTE | 2020-09-09 18:40 | NUR ---
Closing Notes: Patient in bed, alert, awake, and oriented x 2. Able to make needs known. No changes in LOC noted, no s/s of distress or discomfort, no SOB, no c/o pain. VS WNL. Patient turned and repositioned every 2 hours and as needed, tolerated well. Kept skin clean and dry. Good pericare provided. Patient assisted with meals, HOB elevated for aspiration precaution. Fall precautions observed, bed locked and in lowest position. Patient continuously monitored. Needs anticipated and attended. Call light within reach. Will endorse continuity of care to next shift.
--- NOTE | 2020-09-09 19:08 | NUR ---
PT VERBALIZED WANTING TO HAVE FLU AND PNA VACCINE ADMINISTERED PRIOR TO DISCHARGE.NOTIFIED DR TANYA CARIAS AND CARRIED OUT.
--- NOTE | 2020-09-09 19:20 | NUR ---
TELE/RN OPENING NOTES: RECEIVED PT. IN BED, A/OX3. VERBALLY RESPONSIVE AND ABLE TO MAKE NEEDS KNOWN. BREATHING EVEN AND UNLABORED. ON RA SATURATING WELL. NO SOB NOTED. NO S/S OF DISTRESS NOTED. NO C/O PAIN AT THIS TIME. IV ON THE RIGHT HAND #24G. TELE READING OF NSR 69. TELE MONITOR IN THE UNIT IS NOT WORKING. CHARGE NURSE AWARE, TELE WOOL SHEARER AWARE. SAFETY MEASURES IN PLACE. BED IN LOW, LOCKED POSITION WITH SR UPX2. CALL LIGHT WITHIN REACH. WILL CONTINUE TO MONITOR ACCORDINGLY.
[2020-09-09] MEDS ORDERED: INFLUENZA VACCINE 2020-21 0.5 ML DISP.SYRIN IM ONE (19:30)
[2020-09-09] MEDS ORDERED: PNEUMOCOCCAL 23-VAL P-SAC VAC 0.5 ML VIAL SQ ONE (19:30)
[2020-09-09 20:00] VITALS: BP 99/60
--- NOTE | 2020-09-09 20:49 | NUR ---
TELE/RN OPENING NOTES: RECEIVED PT. IN BED, A/OX3. VERBALLY RESPONSIVE AND ABLE TO MAKE NEEDS KNOWN. BREATHING EVEN AND UNLABORED. ON RA SATURATING WELL. NO SOB NOTED. NO S/S OF DISTRESS NOTED. NO C/O PAIN AT THIS TIME. IV ON THE RIGHT HAND #24G. TELE READING OF NSR 69. TELE MONITOR IN THE UNIT IS NOT WORKING. CHARGE NURSE AWARE, TELE VENEER TAPING MACHINE OFFBEARER AWARE. SAFETY MEASURES IN PLACE. BED IN LOW, LOCKED POSITION WITH SR UPX2. CALL LIGHT WITHIN REACH. WILL CONTINUE TO MONITOR ACCORDINGLY.
[2020-09-09] MEDS: ARIPIPRAZOLE 5 MG TABLET PO SCH (22:50)
[2020-09-09] MEDS: LATANOPROST EYE DROP 0.005% 2.5 ML BOTTLE EACHEYE SCH (22:50)
[2020-09-09] MEDS: TRAZODONE 50 MG TABLET PO SCH (22:50)
[2020-09-10] VITALS: BP 115/58
[2020-09-10] MEDS: IPRATROPIUM BROMIDE 14 GM INHALER (or 12.9 GM) IH SCH ×4 (00:22→17:33)
[2020-09-10] MEDS: ALBUTEROL SULFATE 8 GM HFA.AER.AD IH SCH ×4 (00:22→17:33)
[2020-09-10] MEDS: methylPREDNISolone SOD SUCC 125 MG/2ML VIAL IV SCH ×3 (03:38→20:18)
[2020-09-10 04:00] VITALS: BP 128/69
--- NOTE | 2020-09-10 06:02 | NUR ---
TELE/RN NOTES: PT. DOES NOT HAVE RECORDS OF IMMUNIZATION ON THE CHART. WILL F/U WITH [facility] IN THE MORNING. WILL ENDORSED TO DAY SHIFT TO HOLD ADMINISTRATION OF FLU VACCINE AND PNA VACCINE PRIOR DC BEFORE CLARIFYING WITH [facility].
--- NOTE | 2020-09-10 06:43 | NUR ---
TELE/RN CLOSING NOTES: PT. REMAINS IN BED RESTING, A/OX3. VERBALLY RESPONSIVE AND ABLE TO MAKE NEEDS KNOWN. BREATHING EVEN AND UNLABORED. ON RA SATURATING WELL. NO SOB NOTED. NO S/S OF DISTRESS NOTED. NO C/O PAIN AT THIS TIME. IV ON THE RIGHT HAND #24G, SL. WRAPPED WITH KERLIX. TELE READING OF SR 70 WITH BBB AND PVCS. TELE MONITOR IN THE UNIT IS STILL NOT WORKING. CHARGE NURSE AWARE, TELE HEAT READER AWARE. ALL DUE MEDS GIVEN ORDERED. TOLERATED WELL. KEPT PATIENT CLEAN AND DRY AT ALL TIMES. ALL NURSING NEEDS META ND RENDERED. SAFETY MEASURES KEPT IN PLACE. BED IN LOW, LOCKED POSITION WITH SR UPX2. CALL LIGHT WITHIN REACH. WILL ENDORSE TO DAY SHIFT NURSE FOR DINORA.
[2020-09-10 07:01] LABS: CALCIUM, SERUM 9.8 mg/dL (8.5-10.1); POTASSIUM 4.3 mmol/L (3.5-5.1)
--- NOTE | 2020-09-10 07:28 | NUR ---
RN NOTES: RECEIVED PT IN BED RESTING COMFORTABLY IN MODERATE HIGH BACK REST, A/OX 2-3. ON OXYGEN 2LPM VIA NC. NO S/S OF DISTRESS NOTED AT THIS TIME. IV ON THE RIGHT HAND #24G, SL. WRAPPED WITH KERLIX. NOTED WITH CARDIAC MONITORNG READING OF SR WITH HR OF 70. SAFETY MEASURES KEPT IN PLACE. BED IN LOW, LOCKED POSITION WITH SR UPX2. CALL LIGHT WITHIN REACH. WILL CONTINUE TO MONITOR.
[2020-09-10 08:00] VITALS: BP 114/64
[2020-09-10] MEDS: FINASTERIDE (5 MG) 5 MG TABLET PO SCH (08:17)
[2020-09-10] MEDS: GABAPENTIN 100 MG CAPSULE PO SCH ×3 (08:17→17:27)
[2020-09-10] MEDS: OXYBUTYNIN CHLORIDE 5 MG TABLET PO SCH ×2 (08:18→17:27)
[2020-09-10] MEDS: APIXABAN 5 MG TABLET PO SCH ×2 (08:18→17:28)
[2020-09-10] MEDS: TAMSULOSIN 0.4 MG CAP.SR.24H PO SCH (08:18)
[2020-09-10] MEDS: LITHIUM CARBONATE (300 MG CAP) 300 MG CAPSULE PO SCH ×2 (08:18→17:27)
[2020-09-10] MEDS: BUPROPION XL 150 MG TAB.ER.24 PO SCH (08:19)
[2020-09-10] MEDS: DRONEDARONE HYDROCHLORIDE 400 MG TABLET PO SCH (08:19)
[2020-09-10] MEDS: FLUTICASONE PROPIONATE 16 GM BOTTLE NS SCH ×2 (09:02→17:33)
[2020-09-10] MEDS: BRIMONIDINE TARTRATE OPHT SOLN 5 ML BOTTLE EACHEYE SCH ×3 (09:02→17:36)
[2020-09-10] MEDS: TIMOLOL MAL/DORZOLAM HCL OPHTH 10 ML BOTTLE RIGHTEYE SCH ×2 (09:02→17:36)
--- NOTE | 2020-09-10 12:14 | NUR ---
RN NOTES SEEN AND EXAMINED BY DR. CARIAS WITH ORDERS OF NORCO 5/325 Q6HR BY MOUTH, ORDERS MADE AND CARRIED OUT.
[2020-09-10] MEDS: HYDROCODONE/APAP 5/325MG TABLET PO PRN ×2 (12:22→21:10)
--- NOTE | 2020-09-10 13:36 | NUR ---
RN NOTES CALLED [facility] TO ASKED INFORMATION REGARDING PATIENTS STATUS ON VACCINE, PATIENT IS UP TO DATE. FLU VACCINE: 09/07/20 AND PNEUMO : 06/03/19.
[2020-09-10 16:00] VITALS: BP 120/71
--- NOTE | 2020-09-10 18:50 | NUR ---
RN NOTES: PT IN BED RESTING COMFORTABLY IN MODERATE HIGH BACK REST, A/OX 2-3. ON OXYGEN 2LPM VIA NC. NO S/S OF DISTRESS NOTED THROUGHOUT THE SHIFT. IV ON THE RIGHT HAND #24G, SL. WRAPPED WITH KERLIX. NOTED WITH CARDIAC MONITORING READING OF SB WITH HR OF 50'S. SAFETY MEASURES KEPT IN PLACE. BED IN LOW, LOCKED POSITION WITH SR UPX2. CALL LIGHT WITHIN REACH. WILL ENDORSE TO SENIOR MANAGEMENT CONSULTANT NURSE FOR DINORA.
[2020-09-10 19:20] VITALS: BP 113/62
--- NOTE | 2020-09-10 19:30 | NUR ---
TRAVEL COTA: RECEIVED PATIENT Patient in bed, A/O x3. On 2L Oxygen via NC, tolerating well. Sinus Ankit in the Tele monitor. C/o leg pain, turned and repositioned, made comfortable in bed. Pending Covid test. Fall precaution maintained.
[2020-09-10 19:55] VITALS: BP 113/62
[2020-09-10] MEDS: TRAZODONE 50 MG TABLET PO SCH (21:10)
[2020-09-10] MEDS: ARIPIPRAZOLE 5 MG TABLET PO SCH (21:11)
[2020-09-10] MEDS: LATANOPROST EYE DROP 0.005% 2.5 ML BOTTLE EACHEYE SCH (21:14)
[2020-09-11] VITALS (7 sets, daily range): BP systolic 100–121; BP diastolic 59–78
--- NOTE | 2020-09-11 00:48 | NUR ---
SINUS SPEEDY IN THE TELE MONITOR Pranay Rico reported Sinus speedy HR 39 in the Tele monitor. Patient in bed, sleeping arouses easily. Remains A/O x3 denies any discomfort, per patient he's just being lazy, no other complaints. KIYA Stack/Charge aware. Called Dr. Menchaca, EKG stat result reviewed with MD and patient current condition, with no new orders at this time, per MD to f/u with Dr. Purcell/Cardio in AM. Will cont to monitor patient.
[2020-09-11] MEDS: IPRATROPIUM BROMIDE 14 GM INHALER (or 12.9 GM) IH SCH ×3 (02:25→12:17)
[2020-09-11] MEDS: methylPREDNISolone SOD SUCC 125 MG/2ML VIAL IV SCH ×2 (03:36→12:03)
[2020-09-11] MEDS: ALBUTEROL SULFATE 8 GM HFA.AER.AD IH SCH ×3 (06:12→12:42)
--- NOTE | 2020-09-11 06:39 | NUR ---
EDUCATION REVIEWER: END OF SHIFT REPORT Patient in bed, awake, A/O x3. Oxygen sat in high 90's, Sinus Ankit in the Tele monitor HR 40's Dr. Menchaca aware, informed. Leg pain controlled with PRN Vantage. On IV Steroid and Bronchodilator IH, denies SOB at rest and with exertion. Covid test-Negative, PCR pending. Fall precaution maintained. Sinus Ankit with HR 40's, will endorse to oncoming RN to f/u with Cardio in am per Dr. Menchaca.
[2020-09-11 07:13] LABS: BASOPHILS % (AUTO) 0.1 % (0.0-2.0); HEMATOCRIT 40 % (39-51); HEMOGLOBIN 12.5 g/dL (13.5-17.5); LYMPHOCYTES # (AUTO) 0.4 /CMM (0.8-4.8); MEAN CORPUSCULAR HGB CONC 32 g/dl (31.0-36.0); MEAN CORPUSCULAR VOLUME 95 fL (80-96); MONOCYTES # (AUTO) 0.3 /CMM (0.1-1.30); NEUTROPHILS # (AUTO) 10.5 /CMM (1.8-8.9); NEUTROPHILS % (AUTO) 92.9 % (43.0-81.0); PLATELET COUNT (AUTO) 340 /CMM (150-450); RED BLOOD CELL COUNT(AUTO) 4.18 MIL/uL (4.5-6.0); WHITE BLOOD COUNT (AUTO) 11.3 K/uL (4.3-11.0)
--- NOTE | 2020-09-11 07:37 | NUR ---
UNIT CONTROL CLERK OPENING NOTE PATIENT IN BED RESTING COMFORTABLY. PATIENT IN NO ACUTE DISTRESS. NO SOB NOTED. PATIENT BREATHING IS EVEN AND UNLABORED. PATIENT ON CARDIAC MONITORING READING SINUS BRADYCARDIA HR 49. BED ALARM IS ON. SAFETY PRECAUTIONS IN PLACE. PATIENT BED IS LOCKED AND IN LOWEST POSITION. CALL LIGHT WITHIN REACH. WILL CONTINUE TO MONITOR.
[2020-09-11 07:43] LABS: CALCIUM, SERUM 9.9 mg/dL (8.5-10.1); CREATININE 0.8 mg/dL (0.6-1.3); PHOSPHORUS 3.9 mg/dL (2.5-4.9); POTASSIUM 4.6 mmol/L (3.5-5.1)
[2020-09-11] MEDS: BRIMONIDINE TARTRATE OPHT SOLN 5 ML BOTTLE EACHEYE SCH ×2 (08:36→12:19)
[2020-09-11] MEDS: DRONEDARONE HYDROCHLORIDE 400 MG TABLET PO SCH (08:37)
[2020-09-11] MEDS: FLUTICASONE PROPIONATE 16 GM BOTTLE NS SCH (08:37)
[2020-09-11] MEDS: TAMSULOSIN 0.4 MG CAP.SR.24H PO SCH (08:38)
[2020-09-11] MEDS: FINASTERIDE (5 MG) 5 MG TABLET PO SCH (08:38)
[2020-09-11] MEDS: OXYBUTYNIN CHLORIDE 5 MG TABLET PO SCH (08:38)
[2020-09-11] MEDS: LITHIUM CARBONATE (300 MG CAP) 300 MG CAPSULE PO SCH (08:38)
[2020-09-11] MEDS: BUPROPION XL 150 MG TAB.ER.24 PO SCH (08:38)
[2020-09-11] MEDS: GABAPENTIN 100 MG CAPSULE PO SCH ×2 (08:39→12:04)
[2020-09-11] MEDS: TIMOLOL MAL/DORZOLAM HCL OPHTH 10 ML BOTTLE RIGHTEYE SCH (08:41)
[2020-09-11] MEDS: APIXABAN 5 MG TABLET PO SCH (08:42)
[2020-09-11] MEDS: HYDROCODONE/APAP 5/325MG TABLET PO PRN (12:17)
--- NOTE | 2020-09-11 13:09 | NUR ---
ATTENDING PATHOLOGIST NOTE PATIENT IS REFUSING FURTHER VACCINATIONS AND STATED HE ALREADY RECEIVED PNEUMONIA VACCINE AND FLU VACCINE FOR THIS YEAR.
--- NOTE | 2020-09-11 15:36 | NUR ---
INTEGRATED PROGRAM TEACHER NOTE PATIENT MEDICALLY CLEARED FOR DISCHARGE. PATIENT IN BED RESTING COMFORTABLY. PATIENT IN NO ACUTE DISTRESS. NO SOB NOTED. PATIENT BREATHING IS EVEN AND UNLABORED. DC INSTRUCTIONS PROVIDED. PATIENT VERBALIZED UNDERSTANDING. PATIENT SKIN ASSESSED, NO NEW SKIN BREAKDOWN NOTED. PATIENT BELONGINGS LIST SIGNED. DC PAPERWORK AND BELONGINGS WITH PATIENT. ID BAND REMOVED. IV REMOVED. PATIENT KEPT CLEAN, DRY, AND COMFORTABLE THROUGHOUT SHIFT. NEEDS AND CONCERNS ADDRESSED. EXPLAINED ALL DUE MEDS. REPORT GIVEN TO KANNAN HUERTAS AT [facility]. PATIENT GOING BACK BY AMBULANCE WITH TWO SCIENTIST ENGINEER. MD AWARE OF DISCHARGE.
== END 2020-09-11 16:04 | DRG 191 ==
LOC: ER 09:20 → TELE2 10:56
PROVIDERS: ADMIT Internal Medicine Nephrology; ATTEND Internal Medicine Nephrology
DX: J44.1 Chronic obstructive pulmonary disease with (acute) exacerbation (principal); M51.06 Intervertebral disc disorders with myelopathy, lumbar region; I48.92 Unspecified atrial flutter; J98.11 Atelectasis; E22.2 Syndrome of inappropriate secretion of antidiuretic hormone; I25.10 Atherosclerotic heart disease of native coronary artery without angina pectoris; Z86.73 Personal history of transient ischemic attack (TIA), and cerebral infarction without residual deficits; Z87.891 Personal history of nicotine dependence; Z86.718 Personal history of other venous thrombosis and embolism; Z82.5 Family history of asthma and other chronic lower respiratory diseases; Z82.3 Family history of stroke; Z79.899 Other long term (current) drug therapy; Z79.82 Long term (current) use of aspirin; Z79.51 Long term (current) use of inhaled steroids; Z79.01 Long term (current) use of anticoagulants; I10 Essential (primary) hypertension; F31.9 Bipolar disorder, unspecified; F41.9 Anxiety disorder, unspecified; R26.9 Unspecified abnormalities of gait and mobility; H40.9 Unspecified glaucoma; N40.0 Benign prostatic hyperplasia without lower urinary tract symptoms; I48.0 Paroxysmal atrial fibrillation; I27.20 Pulmonary hypertension, unspecified; I70.0 Atherosclerosis of aorta; F29 Unspecified psychosis not due to a substance or known physiological condition; R07.89 Other chest pain; T38.0X5A Adverse effect of glucocorticoids and synthetic analogues, initial encounter; Y92.9 Unspecified place or not applicable
CPT/HCPCS: 36415; 71045-TC; 80048-TC; 80076-TC; 81000-TC; 83605-TC; 83735-TC; 84100-TC; 84484-TC; 85025-TC; 85730-TC; 87040-TC; 87081-TC; 87086-TC; 90732; 97112-TC; 97116-TC; 97530-TC; G0378; J0456; J0696; J2543; J2930; J3370; J7050; J7060; Q9967; U0003

== ENCOUNTER 2020-10-07 15:41 | Inpatient (IN) | payer MEDICARE, OTHER ==
[~2020-10-07] VITALS: Ht 190.5 cm; Wt 75.7 kg
[~2020-10-07 15:41] MED LIST changes: +ACET-2605 PO; +APIX5TAB4 PO; -ASPI-992 PO; -BISA10SU11 RC; -CARB-93 PO; +DRON400T2 PO; -FLUT1BLS IH; -HYDR-3976 PO; +LATA2.5D15 EACHEYE; -LATA2.5D7 EACHEYE; +LOPE2TAB25 PO; -MAGN400O6 PO; -MELA3TAB41 PO; -TIOT18CA3 IH
--- NOTE | 2020-10-07 16:06 | NUR ---
frm snf c/o L sided chest pain since this morning. aspirin given. PT AAOX4, VSS. RR EVEN & UNLABORED. DENIES SOB, DIZZINESS, N/V, WEAKNESS AT THIS TIME. PLACED ON PRIMER INSPECTOR, AFIB. AWAITING EVAL BY ERMD & WILL CONT TO MONITOR.
[2020-10-07 16:28] LABS: BASOPHILS % (AUTO) 0.4 % (0.0-2.0); EOSINOPHILS % (AUTO) 3.2 % (0.0-6.0); HEMATOCRIT 37 % (39-51); LYMPHOCYTES # (AUTO) 0.9 /CMM (0.8-4.8); LYMPHOCYTES % (AUTO) 12.5 % (20.0-44.0); MEAN CORPUSCULAR HGB CONC 32 g/dl (31.0-36.0); MEAN CORPUSCULAR VOLUME 94 fL (80-96); MONOCYTES # (AUTO) 0.6 /CMM (0.1-1.30); MONOCYTES % (AUTO) 8.1 % (2.0-12.0); NEUTROPHILS # (AUTO) 5.6 /CMM (1.8-8.9); NEUTROPHILS % (AUTO) 75.8 % (43.0-81.0); PLATELET COUNT (AUTO) 262 /CMM (150-450); RED BLOOD CELL COUNT(AUTO) 3.93 MIL/uL (4.5-6.0); WHITE BLOOD COUNT (AUTO) 7.4 K/uL (4.3-11.0)
[2020-10-07 16:35] LABS: CALCIUM, SERUM 9.3 mg/dL (8.5-10.1); CARBON DIOXIDE 27 mmol/L (21-32); CHLORIDE 106 mmol/L (98-107); GLUCOSE 128 mg/dL (74-106); POTASSIUM 3.7 mmol/L (3.5-5.1); SODIUM SERUM 140 mmol/L (136-145); UREA NITROGEN, BLOOD 16 mg/dL (7-18)
[2020-10-07 16:46] LABS: D-DIMER < 0.19 mg/L(FEU (0.17-0.50)
[2020-10-07 16:48] LABS: B-TYPE NATRIURETIC PEPTIDE 164 PG/ML (0-125)
[2020-10-07] MEDS ORDERED: CARB-93 PO (17:31)
[2020-10-07] MEDS ORDERED: MAGN400O6 PO (17:31)
[2020-10-07] MEDS ORDERED: HYDR-4384 PO (17:31)
--- NOTE | 2020-10-07 17:47 | NUR ---
CALLED DR. TANYA CARIAS'S EXCHANGE.
--- NOTE | 2020-10-07 17:48 | NUR ---
DR. CARIAS ACCEPTED THE PATIENT.
--- NOTE | 2020-10-07 17:55 | NUR ---
RECEIVED VERBAL ORDERS FROM DR. CARIAS. ORDERS NOTED AND TRANSCRIBED.
--- NOTE | 2020-10-07 17:57 | NUR ---
CALLED PHARMACY FOR IV ROCEPHIN AND ZITHROMAX
[2020-10-07] MEDS ORDERED: AZITHROMYCIN 500 MG in IV D5W 250 ML IV ONE (18:00)
[2020-10-07] MEDS ORDERED: CEFTRIAXONE 1 G in IV D5W 50 ML IV ONE (18:00)
--- NOTE | 2020-10-07 18:17 | NUR ---
CALLED NURSING SUP FOR TELE BED.
--- NOTE | 2020-10-07 18:22 | NUR ---
PT VSS. RR EVEN & UNLABORED. DENIES CP, SOB, DIZZINESS, N/V AT THIS TIME. WILL CONT TO MONITOR.
--- NOTE | 2020-10-07 19:06 | NUR ---
BED 209
--- NOTE | 2020-10-07 21:13 | NUR ---
REPORT GIVEN TO KIYA MAYO FOR DINORA.
[2020-10-07 21:45] VITALS: BP 124/73
[2020-10-08] VITALS: BP 130/81
[2020-10-08] MEDS ORDERED: AZITHROMYCIN 500 MG VIAL ONE (03:18)
[2020-10-08] MEDS ORDERED: CEFTRIAXONE 1 G VIAL ONE (03:19)
[2020-10-08 04:00] VITALS: BP 120/75
[2020-10-08 06:50] LABS: BASOPHILS % (AUTO) 0.4 % (0.0-2.0); EOSINOPHILS % (AUTO) 2.9 % (0.0-6.0); HEMATOCRIT 36 % (39-51); HEMOGLOBIN 11.8 g/dL (13.5-17.5); LYMPHOCYTES # (AUTO) 0.9 /CMM (0.8-4.8); LYMPHOCYTES % (AUTO) 14.5 % (20.0-44.0); MEAN CORPUSCULAR HGB CONC 33 g/dl (31.0-36.0); MEAN CORPUSCULAR VOLUME 95 fL (80-96); MONOCYTES # (AUTO) 0.5 /CMM (0.1-1.30); MONOCYTES % (AUTO) 8.3 % (2.0-12.0); NEUTROPHILS # (AUTO) 4.6 /CMM (1.8-8.9); NEUTROPHILS % (AUTO) 73.9 % (43.0-81.0); PLATELET COUNT (AUTO) 268 /CMM (150-450); RED BLOOD CELL COUNT(AUTO) 3.78 MIL/uL (4.5-6.0); WHITE BLOOD COUNT (AUTO) 6.2 K/uL (4.3-11.0)
--- NOTE | 2020-10-08 06:57 | NUR ---
RN CLOSING NOTE: Patient in bed sleeping comfortably. All needs were met. No SOB or acute respiratory distress noted. Safety precaution is maintained, bed is in the lowest level, bed is locked, alarm is on, side rails x2 are up, and call light s within reach. Will endorse to next shift.
[2020-10-08 07:09] LABS: CALCIUM, SERUM 9.5 mg/dL (8.5-10.1); CARBON DIOXIDE 28 mmol/L (21-32); CHLORIDE 106 mmol/L (98-107); CREATININE 0.8 mg/dL (0.6-1.3); GLUCOSE 101 mg/dL (74-106); POTASSIUM 3.7 mmol/L (3.5-5.1); SODIUM SERUM 139 mmol/L (136-145); UREA NITROGEN, BLOOD 12 mg/dL (7-18)
[2020-10-08 08:00] VITALS: BP 119/74
--- NOTE | 2020-10-08 08:00 | NUR ---
SPEECH AND DRAMA TEACHER OPENING NOTES RECEIVED PT ON BED A/OX1-2, RESPONSIVE TO STIMULI. RESPIRATION EVEN AND NON LABORED WITH NO ACUTE RESPIRATORY DISTRESS, ON O2 AT 2LPM VIA N/C, KIMMIE WELL. PT HAS THE TENDENCY TO PULL OUT OXYGEN, TOLERATING RA. C/O OF SOB IN EXERTION SUCH SITTING TO LYING DOWN ON BED, EDUCATED ABOUT THE IMPORTANCE OF OXYGEN AND HOB ELEVATED, TAUGHT PROPER BREATHING TECHNIQUES. PT ABLE TO FOLLOW COMMAND. ABD SOFT AND NON DISTENDED WITH ACTIVE BOWEL SOUNDS. DENIES PAIN AND DISCOMFORT. IV SITE AT RAC # 18 PATENT IN FLUSHING, NO S/SX OF INFILTRATION. BED IN LOW LOCKED POSITION, SRX2 UP FOR SAFETY, CALL LIGHT WITHIN REACHED, BED ALARM ON. TELE MONITOR SHOWS ARIAL FIBRILLATION CONTROLLED 70. WILL CONTINUE TO MONITOR CARE
[2020-10-08] MEDS ORDERED: Medication Not On Formulary EA (Cran/Vitc/Mannose/Inulin/Brom (Uti-Stat Liquid) 30 ML) PO SCH (10:30)
[2020-10-08] MEDS ORDERED: TIMOLOL MAL/DORZOLAM HCL OPHTH 10 ML BOTTLE RIGHTEYE SCH (10:30)
[2020-10-08] MEDS ORDERED: Medication Not On Formulary EA (Cranberry Extract (Cranberry) 425 MG) PO SCH (10:30)
[2020-10-08] MEDS: LITHIUM CARBONATE (300 MG CAP) 300 MG CAPSULE PO SCH ×2 (10:54→21:08)
[2020-10-08] MEDS: FINASTERIDE (5 MG) 5 MG TABLET PO SCH (10:54)
[2020-10-08] MEDS: APIXABAN 5 MG TABLET PO SCH ×2 (11:13→21:19)
--- NOTE | 2020-10-08 11:33 | NUR ---
MARBLE AND GRANITE POLISHER NOTES CONTACTED PHARMACY FOR BUPROPION XL. TO SEND AT MS2. DUE AT 11AM
[2020-10-08] MEDS: BUPROPION XL 150 MG TAB.ER.24 PO SCH (11:53)
[2020-10-08 12:00] VITALS: BP 115/73
[2020-10-08] MEDS: GABAPENTIN 100 MG CAPSULE PO SCH ×2 (12:06→17:14)
--- NOTE | 2020-10-08 12:20 | NUR ---
INFORMATION TECHNOLOGY ANALYST NOTES PT SEEN AND EVALUATED BY DR. CARIAS. COVID 19 PCR RESULTED. NEGATIVE. MD MADE AWARE. OKAY TO TRANSFER PER MD.
[2020-10-08] MEDS ORDERED: APIXABAN 5 MG TABLET PO SCH (12:30)
[2020-10-08] MEDS: BRIMONIDINE TARTRATE OPHT SOLN 5 ML BOTTLE EACHEYE SCH ×2 (13:21→18:46)
[2020-10-08] MEDS: DRONEDARONE HYDROCHLORIDE 400 MG TABLET PO SCH (13:21)
[2020-10-08] MEDS: methylPREDNISolone SOD SUCC 125 MG/2ML VIAL IV SCH (13:22)
[2020-10-08] MEDS: IPRATROPIUM NEB FS 0.5 MG/2.5 ML AMPUL.NEB IH SCH ×3 (14:21→19:37)
--- NOTE | 2020-10-08 15:23 | NUR ---
DICE MANAGERANCILLARY SPECIALIST NOTES PT TRANSFERRED TO 313-2, REPORT GIVEN TO IDRIS RN. PT AOX1, RESPONSIVE TO STIMULI, WITH INTERNAL HALLUCINATION, COOPERATIVE WITH CARE. NO PRESENCE OF ACUTE RESPIRATORY DISTRESS. DENIES PAIN AND DISCOMFORT. IV LINE AT RAC #18, PATENT IN FLUSHING. TELE MONITOR SHOWS SINUS RHYTHM. ALL CONCERNS ATTENDED, ENDORSED CARE TO NEW NURSE ON NON-COVID UNIT.
[2020-10-08 16:00] VITALS: BP_SYST 119; BP_SYST 137; BP_DIAS 73; BP_DIAS 86
[2020-10-08] MEDS: TIMOLOL MAL/DORZOLAM HCL OPHTH 10 ML BOTTLE RIGHTEYE SCH (17:13)
[2020-10-08] MEDS: FLUTICASONE PROPIONATE 16 GM BOTTLE NS SCH (17:18)
[2020-10-08] MEDS ORDERED: IPRATROPIUM NEB FS 0.5 MG/2.5 ML AMPUL.NEB IH SCH (18:00)
[2020-10-08] MEDS: CEFTRIAXONE 1 G in IV D5W 50 ML IV SCH (18:31)
[2020-10-08] MEDS: OXYBUTYNIN CHLORIDE 5 MG TABLET PO SCH (18:36)
[2020-10-08] MEDS: TAMSULOSIN 0.4 MG CAP.SR.24H PO SCH (18:37)
[2020-10-08] MEDS: AZITHROMYCIN 500 MG in IV D5W 250 ML IV SCH (18:46)
--- NOTE | 2020-10-08 19:30 | NUR ---
RN OPENING NOTES Received patient, A/Ox2, awake on bed. No complaints made at this time. On RA, no respiratory distress noted. On tele monitor with NSR noted. Kept on bed clean, dry and comfortable. Call light within easy reach. On fall and aspiration precautions. Will continue to monitor accordingly.
--- NOTE | 2020-10-08 19:31 | NUR ---
rn closing notes pt awake , sitting on the bed; NAD. denies pain. safety ensured. endorsed in stable condition
[2020-10-08 20:00] VITALS: BP 118/83
[2020-10-08] MEDS: ARIPIPRAZOLE 5 MG TABLET PO SCH (21:07)
[2020-10-08] MEDS: TRAZODONE 50 MG TABLET PO SCH (21:08)
[2020-10-08] MEDS: LATANOPROST EYE DROP 0.005% 2.5 ML BOTTLE EACHEYE SCH (21:17)
[2020-10-08] MEDS: ALPRAZOLAM 0.25 MG TABLET PO PRN (23:09)
[2020-10-09] VITALS: BP 114/65
[2020-10-09] MEDS: IPRATROPIUM NEB FS 0.5 MG/2.5 ML AMPUL.NEB IH SCH ×4 (00:57→20:01)
[2020-10-09 04:00] VITALS: BP 120/68
--- NOTE | 2020-10-09 07:14 | NUR ---
RN CLOSING NOTES Pt asleep on bed. On RA, no complaints made, no new unusualities noted. NSR on tele monitor. All nursing needs attended. Kept on bed clean, dry and comfortable. On fall and aspiration precautions. Endorsed.
[2020-10-09 08:00] VITALS: BP 114/70
--- NOTE | 2020-10-09 08:00 | NUR ---
CRUSHER SUPERVISOR NOTES RECEIVED PT ON BED A/OX2, RESPONSIVE TO STIMULI. RESPIRATION EVEN AND NON LABORED WITH NO ACUTE RESPIRATORY DISTRESS, ON O2 AT 2L VIA N/C, NO SOB, GETTING BREATHING TX VIA RT EDUCATED BREATH DURING TREATMENT, HOB ELEVATED, TAUGHT PROPER BREATHING TECHNIQUES. DUE MEDICATION ADMINISTERED, V/S WNL. PT ABLE TO FOLLOW COMMAND. ABDOMEN SOFT, ACTIVE BOWEL SOUNDS. DENIES PAIN AND DISCOMFORT. IV SITE AT RAC # 18 PATENT IN FLUSHING, NO S/SX OF INFILTRATION. BED IN LOW LOCKED POSITION, SRX2 UP FOR SAFETY, CALL LIGHT WITHIN REACHED, BED ALARM ON. TELE MONITOR SHOWS ARIAL FIBRILLATION CONTROLLED 70. WILL CONTINUE TO MONITOR CARE
--- NOTE | 2020-10-09 08:42 | NUR ---
RN NOTES PER PRECISION AGRICULTURE SPECIALIST Dr. ACEVES PATIENT TELE TO TRANSFER MED/SURGE .
[2020-10-09] MEDS: GABAPENTIN 100 MG CAPSULE PO SCH ×3 (09:11→17:08)
[2020-10-09] MEDS: ALPRAZOLAM 0.25 MG TABLET PO PRN (09:11)
[2020-10-09] MEDS: MAGNESIUM HYDROXIDE 30 ML UDC PO SCH (09:11)
[2020-10-09] MEDS: BUPROPION XL 150 MG TAB.ER.24 PO SCH (09:11)
[2020-10-09] MEDS: methylPREDNISolone SOD SUCC 125 MG/2ML VIAL IV SCH (09:11)
[2020-10-09] MEDS: OXYBUTYNIN CHLORIDE 5 MG TABLET PO SCH ×2 (09:11→17:09)
[2020-10-09] MEDS: FINASTERIDE (5 MG) 5 MG TABLET PO SCH (09:11)
--- NOTE | 2020-10-09 09:11 | NUR ---
RN NOTES ADMINISTERED XANAX 0.25 MG PO PRN FOR ANXIETY , WILL CONTINUED MONITORING.
[2020-10-09] MEDS: APIXABAN 5 MG TABLET PO SCH ×2 (09:13→17:09)
[2020-10-09] MEDS: FLUTICASONE PROPIONATE 16 GM BOTTLE NS SCH ×2 (09:14→17:10)
[2020-10-09] MEDS: BRIMONIDINE TARTRATE OPHT SOLN 5 ML BOTTLE EACHEYE SCH ×3 (09:15→17:10)
[2020-10-09] MEDS: TIMOLOL MAL/DORZOLAM HCL OPHTH 10 ML BOTTLE RIGHTEYE SCH ×2 (09:15→17:10)
[2020-10-09] MEDS: DRONEDARONE HYDROCHLORIDE 400 MG TABLET PO SCH (09:16)
[2020-10-09] MEDS: LITHIUM CARBONATE (300 MG CAP) 300 MG CAPSULE PO SCH ×2 (09:19→21:13)
[2020-10-09 16:00] VITALS: BP 105/68
[2020-10-09] MEDS: CEFTRIAXONE 1 G in IV D5W 50 ML IV SCH (17:12)
[2020-10-09] MEDS: AZITHROMYCIN 500 MG in IV D5W 250 ML IV SCH (18:11)
[2020-10-09] MEDS: TAMSULOSIN 0.4 MG CAP.SR.24H PO SCH (18:13)
--- NOTE | 2020-10-09 18:41 | NUR ---
RN NOTES PATIENT STABLE RESTING IN THE BED AFTER DINNER, TOLERATED INTAKE WELL, DUE MEDICATION ADMINISTERED, REFUSED PAIN, NO ACUTE RESPIRATORY DISTRESS, ASSIST TURN AND REPOSTION Q2 HR. ENDORSED ONCOMING NURSE FOLLOW PLAN OF CARE.
--- NOTE | 2020-10-09 19:30 | NUR ---
MS RN OPENING NOTES RECEIVED PATIENT IN BED ALERT AND ORIENTED X 2. VERBALLY RESPONSIVE AND ABLE TO FOLLOW SIMPLE DIRECTIONS. BREATHING REGULAR AND UNLABORED ON OXYGEN AT 2L/MIN VIA NASAL CANNULA. RIGHT AC G18 IV LINE INTACT AND PATENT, FLUSHING WELL WITH NO BLEEDING OR S/S OF INFILTRATION NOTED. NO S/S OF PAIN/DISCOMFORT SEEN AT THIS TIME. BED LOW AND LOCKED ON SEMI FOWLERS POSITION. CALL LIGHT IN REACH. WILL CONTINUE TO MONITOR.
[2020-10-09 20:00] VITALS: BP 104/50
[2020-10-09] MEDS: LATANOPROST EYE DROP 0.005% 2.5 ML BOTTLE EACHEYE SCH (21:12)
[2020-10-09] MEDS: TRAZODONE 50 MG TABLET PO SCH (21:12)
[2020-10-09] MEDS: ARIPIPRAZOLE 5 MG TABLET PO SCH (21:13)
[2020-10-10] MEDS: ALPRAZOLAM 0.25 MG TABLET PO PRN (01:23)
--- NOTE | 2020-10-10 01:30 | NUR ---
MS RN NOTES SEEN TRYING TO GET OUT OF BED AND UNABLE TO STAY STILL, XANAX 0.25MG GIVEN BY MOUTH. NON-PHARMACOLOGICAL INTERVENTIONS PROVIDED. REDIRECT, BED ALARM ON. WILL CONTINUE TO MONITOR.
[2020-10-10] MEDS: IPRATROPIUM NEB FS 0.5 MG/2.5 ML AMPUL.NEB IH SCH ×4 (01:52→20:05)
[2020-10-10 05:57] LABS: BASOPHILS % (AUTO) 0.2 % (0.0-2.0); EOSINOPHILS % (AUTO) 1.1 % (0.0-6.0); HEMATOCRIT 34 % (39-51); HEMOGLOBIN 11.1 g/dL (13.5-17.5); LYMPHOCYTES # (AUTO) 1.3 /CMM (0.8-4.8); LYMPHOCYTES % (AUTO) 17.5 % (20.0-44.0); MEAN CORPUSCULAR HGB CONC 33 g/dl (31.0-36.0); MEAN CORPUSCULAR VOLUME 94 fL (80-96); MONOCYTES # (AUTO) 0.7 /CMM (0.1-1.30); MONOCYTES % (AUTO) 10.3 % (2.0-12.0); NEUTROPHILS # (AUTO) 5.1 /CMM (1.8-8.9); NEUTROPHILS % (AUTO) 70.9 % (43.0-81.0); PLATELET COUNT (AUTO) 251 /CMM (150-450); RED BLOOD CELL COUNT(AUTO) 3.63 MIL/uL (4.5-6.0); WHITE BLOOD COUNT (AUTO) 7.2 K/uL (4.3-11.0)
[2020-10-10 06:16] LABS: CALCIUM, SERUM 9.1 mg/dL (8.5-10.1); CREATININE 0.7 mg/dL (0.6-1.3); MAGNESIUM 2.3 mg/dL (1.8-2.4); POTASSIUM 4.2 mmol/L (3.5-5.1)
--- NOTE | 2020-10-10 06:35 | NUR ---
MS RN CLOSING NOTES PATIENT IN BED ALERT AND ORIENTED X 2. AFEBRILE WITH NO S/S OF DISTRESS OBSERVED. RIGHT AC G18 IV LINE PATENT AND FLUSHING WELL. NO S/S OF PAIN/DISCOMFORT NOTED AT THIS TIME. BED LOW AND LOCKED ON SEMI FOWLERS POSITION. CALL LIGHT IN REACH. WILL ENDORSE TO MORNING SHIFT FOR DINORA.
--- NOTE | 2020-10-10 07:43 | NUR ---
MS/RN OPENING NOTE RECEIVED PATIENT FROM PHOTO RETOUCHER NURSE. PATIENT IN STABLE CONDITION. A/O X2 PATIENT ON 2L/MIN OF OXYGEN VIA NASAL CANNULA TOLERATING WELL. BREATHING EVEN, NON LABORED, NO SOB NOTED. RIGHT AC #18 INTACT AND PATENT. SAFETY MEASURES IN PLACE. BED LOCKED AND IN LOWEST POSITION, CALL LIGHT WITHIN REACH. WILL CONTINUE TO MONITOR AND ENSURE SAFETY.
[2020-10-10 08:00] VITALS: BP 101/69
[2020-10-10] MEDS: FINASTERIDE (5 MG) 5 MG TABLET PO SCH (09:02)
[2020-10-10] MEDS: APIXABAN 5 MG TABLET PO SCH ×2 (09:02→17:35)
[2020-10-10] MEDS: OXYBUTYNIN CHLORIDE 5 MG TABLET PO SCH ×2 (09:02→17:35)
[2020-10-10] MEDS: BUPROPION XL 150 MG TAB.ER.24 PO SCH (09:02)
[2020-10-10] MEDS: GABAPENTIN 100 MG CAPSULE PO SCH ×3 (09:03→17:35)
[2020-10-10] MEDS: methylPREDNISolone SOD SUCC 125 MG/2ML VIAL IV SCH (09:03)
[2020-10-10] MEDS: LITHIUM CARBONATE (300 MG CAP) 300 MG CAPSULE PO SCH ×2 (09:03→21:27)
[2020-10-10] MEDS: MAGNESIUM HYDROXIDE 30 ML UDC PO SCH (09:03)
[2020-10-10] MEDS: TIMOLOL MAL/DORZOLAM HCL OPHTH 10 ML BOTTLE RIGHTEYE SCH ×2 (09:08→17:39)
[2020-10-10] MEDS: BRIMONIDINE TARTRATE OPHT SOLN 5 ML BOTTLE EACHEYE SCH ×3 (09:08→17:38)
[2020-10-10] MEDS: FLUTICASONE PROPIONATE 16 GM BOTTLE NS SCH ×2 (09:08→17:40)
[2020-10-10] MEDS: DRONEDARONE HYDROCHLORIDE 400 MG TABLET PO SCH (09:09)
--- NOTE | 2020-10-10 09:30 | NUR ---
MS/RN S/B JADEN D/C PLAN PER IM/RENAL
--- NOTE | 2020-10-10 09:40 | NUR ---
MS/RN S/B ST DIET CHANGED TO MECHANICAL SOFT
[2020-10-10 16:00] VITALS: BP_SYST 117; BP_SYST 94; BP_DIAS 58; BP_DIAS 60
--- NOTE | 2020-10-10 16:26 | NUR ---
MS/RN S/B DR. CARIAS CONTINUE CURRENT CARE OF PLAN
[2020-10-10] MEDS: AZITHROMYCIN 500 MG in IV D5W 250 ML IV SCH (17:39)
[2020-10-10] MEDS: CEFTRIAXONE 1 G in IV D5W 50 ML IV SCH (17:39)
[2020-10-10] MEDS: TAMSULOSIN 0.4 MG CAP.SR.24H PO SCH (17:41)
--- NOTE | 2020-10-10 18:35 | NUR ---
MS/RN CLOSING NOTE PATIENT AWAKE AND RESTING IN BED AT THIS TIME. A/O X2-3 ABLE TO MAKE NEEDS KNOWN. BREATHING EVEN, NONLABORED. PATIENT ON 2L/MIN OF OXYGEN NEEDED, PATIENT CURRENTLY ON ROOM AIR, TOLERATING WELL. RIGHT AC #18 SL INTACT AND PATENT. ALL NEEDS MET DURING THE DAY. SAFETY MEASURES IN PLACE, BED LOCKED AND IN LOWEST POSITION, CALL LIGHT WITHIN REACH. WILL ENDORSE TO SOURCING INTERN.
--- NOTE | 2020-10-10 19:40 | NUR ---
MS RN OPENING NOTES RECEIVED PATIENT IN BED ALERT AND ORIENTED X 2-3. VERBALLY RESPONSIVE AND ABLE TO FOLLOW SIMPLE DIRECTIONS. BREATHING REGULAR AND UNLABORED ON ROOM AIR. RIGHT AC G18 IV LINE INTACT AND PATENT, FLUSHING WELL WITH NO BLEEDING OR S/S OF INFILTRATION NOTED. NO COMPLAINTS OF PAIN/DISCOMFORT REPORTED AT THIS TIME. BED LOW AND LOCKED ON SEMI FOWLERS POSITION. CALL LIGHT IN REACH. WILL CONTINUE TO MONITOR.
[2020-10-10 20:00] VITALS: BP 118/62
[2020-10-10] MEDS: ARIPIPRAZOLE 5 MG TABLET PO SCH (21:26)
[2020-10-10] MEDS: LATANOPROST EYE DROP 0.005% 2.5 ML BOTTLE EACHEYE SCH (21:26)
[2020-10-10] MEDS: TRAZODONE 50 MG TABLET PO SCH (21:27)
[2020-10-11] MEDS: IPRATROPIUM NEB FS 0.5 MG/2.5 ML AMPUL.NEB IH SCH ×4 (01:30→13:30)
--- NOTE | 2020-10-11 06:25 | NUR ---
MS RN CLOSING NOTES PATIENT IN BED ALERT AND ORIENTED X 2-3. AFEBRILE WITH NO S/S OF DISTRESS OBSERVED. RIGHT AC G18 IV LINE PATENT AND FLUSHING WELL. NO S/S OF PAIN/DISCOMFORT NOTED AT THIS TIME. BED LOW AND LOCKED ON SEMI FOWLERS POSITION. CALL LIGHT IN REACH. WILL ENDORSE TO MORNING SHIFT FOR DINORA.
--- NOTE | 2020-10-11 07:58 | NUR ---
MS/RN OPENING NOTE RECEIVED PATIENT FROM FIBERGLASS GRINDER NURSE. PATIENT IS IN STABLE CONDITION. A/0 X2-3 ABLE TO VERBALIZE NEEDS. PATIENT BREATHING EVEN, NONLABORED ON ROOM AIR TOLERATING WELL. NO ACUTE DISTRESS NOTED. RIGHT AC #18 SL INTACT AND PATENT. SAFETY MEASURES IN PLACE, BED LOCKED AND IN LOWEST POSITION, CALL LIGHT WITHIN REACH. WILL CONTINUE TO MONITOR AND ENSURE SAFETY.
[2020-10-11 08:00] VITALS: BP 112/56
[2020-10-11] MEDS: BRIMONIDINE TARTRATE OPHT SOLN 5 ML BOTTLE EACHEYE SCH ×2 (08:54→12:39)
[2020-10-11] MEDS: FLUTICASONE PROPIONATE 16 GM BOTTLE NS SCH (08:54)
[2020-10-11] MEDS: GABAPENTIN 100 MG CAPSULE PO SCH ×2 (08:55→12:39)
[2020-10-11] MEDS: OXYBUTYNIN CHLORIDE 5 MG TABLET PO SCH (08:55)
[2020-10-11] MEDS: BUPROPION XL 150 MG TAB.ER.24 PO SCH (08:55)
[2020-10-11] MEDS: LITHIUM CARBONATE (300 MG CAP) 300 MG CAPSULE PO SCH (08:55)
[2020-10-11] MEDS: TIMOLOL MAL/DORZOLAM HCL OPHTH 10 ML BOTTLE RIGHTEYE SCH (08:56)
[2020-10-11] MEDS: APIXABAN 5 MG TABLET PO SCH (08:56)
[2020-10-11] MEDS: MAGNESIUM HYDROXIDE 30 ML UDC PO SCH (08:56)
[2020-10-11] MEDS: FINASTERIDE (5 MG) 5 MG TABLET PO SCH (08:56)
[2020-10-11] MEDS: DRONEDARONE HYDROCHLORIDE 400 MG TABLET PO SCH (08:57)
[2020-10-11] MEDS ORDERED: methylPREDNISolone SOD SUCC 40 MG/ML VIAL IV SCH (09:00)
--- NOTE | 2020-10-11 09:00 | NUR ---
MS/RN Medications Morning medications administered as ordered, no difficulty swallowing.
--- NOTE | 2020-10-11 11:15 | NUR ---
MS/RN REPORT DISCHARGE REPORT GIVEN TO JOHAN IN [facility]. PATIENT IS TO BE PICKED UP AT 1400 AND TAKEN TO ROOM 22-B .
--- NOTE | 2020-10-11 11:30 | NUR ---
MS/residential supervisor pictures Pictures taken and placed in chart ready for discharge this afternoon, scrap picker scheduled for 2p.
--- NOTE | 2020-10-11 15:37 | NUR ---
MS/AGRICULTURAL EDUCATION TEACHER NOTE PATIENT DISHCARGED TO [facility] IN STABLE CONDITION. HEPLOCK REMOVED, PRESSURE DRESSING APPLIED. NAME BAND REMOVED. ALL BELONGINGS ARE COUNTED FOR AND SIGNED OFF IN BELONGINGS LIST, PLACED IN THE CHART. EXIT CARE PREPARED COPY PROVIDED ALONG WITH MEDICAL RECORD AND GIVEN TO PARAMEDICS. REPORT GIVEN TO PARAMEDICS PATIENT LEFT UNIT FLOOR IN STABLE CONDITION.
[2020-10-11] MEDS ORDERED: AZITHROMYCIN 250 MG TABLET PO SCH (18:00)
== END 2020-10-11 15:00 | DRG 190 ==
LOC: ER 15:55 → TELE2 20:54 → TELE 10-08 16:00 → MED 10-09 13:09
PROVIDERS: ADMIT Internal Medicine Nephrology; ATTEND Internal Medicine Nephrology
DX: J44.1 Chronic obstructive pulmonary disease with (acute) exacerbation (principal); J18.9 Pneumonia, unspecified organism; D68.9 Coagulation defect, unspecified; M48.56XA Collapsed vertebra, not elsewhere classified, lumbar region, initial encounter for fracture; J44.0 Chronic obstructive pulmonary disease with (acute) lower respiratory infection; I27.20 Pulmonary hypertension, unspecified; Z86.73 Personal history of transient ischemic attack (TIA), and cerebral infarction without residual deficits; I10 Essential (primary) hypertension; G89.4 Chronic pain syndrome; H40.9 Unspecified glaucoma; I25.10 Atherosclerotic heart disease of native coronary artery without angina pectoris; F41.9 Anxiety disorder, unspecified; F31.9 Bipolar disorder, unspecified; M19.90 Unspecified osteoarthritis, unspecified site; R26.9 Unspecified abnormalities of gait and mobility; G40.909 Epilepsy, unspecified, not intractable, without status epilepticus; G20 Parkinson's disease; I70.0 Atherosclerosis of aorta; Z79.51 Long term (current) use of inhaled steroids; Z79.899 Other long term (current) drug therapy; N40.0 Benign prostatic hyperplasia without lower urinary tract symptoms; Y95 Nosocomial condition; Z79.01 Long term (current) use of anticoagulants; Z82.3 Family history of stroke; Z82.5 Family history of asthma and other chronic lower respiratory diseases; Z86.718 Personal history of other venous thrombosis and embolism; Z87.891 Personal history of nicotine dependence; I48.0 Paroxysmal atrial fibrillation; F29 Unspecified psychosis not due to a substance or known physiological condition
CPT/HCPCS: 36415; 71045-TC; 80048-TC; 83605-TC; 83735-TC; 83880; 84100-TC; 84484-TC; 85025-TC; 85378-TC; 85730-TC; 87040-TC; 87081-TC; 92521; 92526; 94799-TC; 97110-TC; 97116-TC; 97530-TC; 97535-TC; G0378; J0456; J0696; J2920; J2930; J7030; J7050; J7060; U0003

== ENCOUNTER 2025-09-22 22:16 | Emergency (ER) | payer MEDICARE, OTHER ==
[~2025-09-22] VITALS: Ht 185.4 cm; Wt 72.6 kg
[~2025-09-22 22:16] MED LIST changes: +CARB-300 PO; -DRON400T2 PO; +DRON400T6 PO; +HYDR-4384 PO; -LOPE2TAB25 PO; +MAGN400O6 PO
[2025-09-22 22:26] VITALS: BP 126/81; TEMP 98; O2SAT 99
[2025-09-22 22:50] LABS: PLATELET COUNT (AUTO) 265 K/uL (150-450); RED BLOOD CELL COUNT(AUTO) 3.96 MIL/uL (4.5-6.0); RED CELL DISTRIBUTION WIDTH 15.0 % (11.5-15.0); WHITE BLOOD COUNT (AUTO) 7.3 K/uL (4.3-11.0)
[2025-09-22 23:00] LABS: CALCIUM, SERUM 8.5 mg/dL (8.5-10.1); CREATININE 0.9 mg/dL (0.6-1.3); SODIUM SERUM 146 mmol/L (136-145); UREA NITROGEN, BLOOD 23 mg/dL (7-18)
[2025-09-22] MEDS: LORAZEPAM 1 MG TABLET PO ONE (23:04)
[2025-09-22 23:06] LABS: ASPARTATE AMINOTRANSFERASE 32 U/L (15-37); TOTAL PROTEIN, SERUM 7.3 g/dL (6.4-8.2)
[2025-09-23 05:48] LABS: EOSINOPHILS % (MANUAL) 4 % (0-4); LYMPHOCYTES % (MANUAL) 12 % (16-48); METAMYELOCYTES % 1 % (0-0); MONOCYTES % (MANUAL) 10 % (0-11.0); NEUTROPHILS % (MANUAL) 73 (42-76); PLATELET ESTIMATE ADEQUATE
== END 2025-09-23 00:41 ==
LOC: ER 22:19
DX: T17.990A Other foreign object in respiratory tract, part unspecified in causing asphyxiation, initial encounter (principal); F02.83 Dementia in other diseases classified elsewhere, unspecified severity, with mood disturbance; F02.84 Dementia in other diseases classified elsewhere, unspecified severity, with anxiety; F17.200 Nicotine dependence, unspecified, uncomplicated; F31.9 Bipolar disorder, unspecified; G20.A1 Parkinson's disease without dyskinesia, without mention of fluctuations; G40.909 Epilepsy, unspecified, not intractable, without status epilepticus; G89.4 Chronic pain syndrome; H40.9 Unspecified glaucoma; I11.9 Hypertensive heart disease without heart failure; I48.91 Unspecified atrial fibrillation; I63.9 Cerebral infarction, unspecified; J44.9 Chronic obstructive pulmonary disease, unspecified; M19.90 Unspecified osteoarthritis, unspecified site; N40.0 Benign prostatic hyperplasia without lower urinary tract symptoms; Z79.01 Long term (current) use of anticoagulants; Z79.899 Other long term (current) drug therapy; Z86.718 Personal history of other venous thrombosis and embolism; Z86.73 Personal history of transient ischemic attack (TIA), and cerebral infarction without residual deficits; Y92.89 Other specified places as the place of occurrence of the external cause
CPT/HCPCS: 36415; 71045-TC; 80048-TC; 80076-TC; 84484-TC; 85027-TC

== ENCOUNTER 2025-11-12 07:29 | Inpatient (IN) | payer MEDICARE, OTHER ==
[~2025-11-12] VITALS: Ht 177.8 cm; Wt 79.4 kg
[~2025-11-12 07:29] MED LIST changes: -LATA2.5D15 EACHEYE; +LATA2.5D15 RIGHTEYE
[2025-11-12 07:36] VITALS: TEMP 98.1
[2025-11-12] MEDS ORDERED: IOHEXOL-350 100 ML VIAL IV ONE (07:42)
[2025-11-12] MEDS ORDERED: IV NS 0.9% 500 ML IV ONE (07:42)
[2025-11-12] MEDS ORDERED: CT SWABBABLE VALVE TRANS SET 1 EA INFUS.SET MC ONE (07:42)
[2025-11-12 07:50] LABS: PLATELET COUNT (AUTO) 159 K/uL (150-450); RED BLOOD CELL COUNT(AUTO) 4.17 MIL/uL (4.5-6.0); RED CELL DISTRIBUTION WIDTH 15.5 % (11.5-15.0); WHITE BLOOD COUNT (AUTO) 8.1 K/uL (4.3-11.0)
[2025-11-12 08:01] LABS: CALCIUM, SERUM 8.6 mg/dL (8.5-10.1); CREATININE 0.9 mg/dL (0.6-1.3); SODIUM SERUM 144.0 mmol/L (136-145); UREA NITROGEN, BLOOD 23.0 mg/dL (7-18)
[2025-11-12 08:18] LABS: ASPARTATE AMINOTRANSFERASE 11.0 U/L (15-37); TOTAL PROTEIN, SERUM 7.0 g/dL (6.4-8.2)
[2025-11-12] MEDS: IV NS 0.9% 1,000 ML BAG IV ONE (08:37)
[2025-11-12 09:10] LABS: APPEARANCE,URINE CLEAR (CLEAR); BLOOD, URINE 1+ Ery/uL (NEGATIVE); LEUKOCYTE ESTERASE ,URINE TRACE (NEGATIVE); NITRITE, URINE NEGATIVE (NEGATIVE); UGLUCOSE NEGATIVE (NEGATIVE)
[2025-11-12 09:13] LABS: ADD URINE CULTURE NO; SQUAMOUS EPITHELIAL CELL,UR Few /HPF (None Seen)
[2025-11-12] MEDS ORDERED: DORZ10DR10 EACHEYE (09:15)
[2025-11-12] MEDS ORDERED: ASCO500T20 PO (09:15)
[2025-11-12] MEDS ORDERED: POLY119P2 PO (09:15)
[2025-11-12] MEDS ORDERED: FLUT1DIS28 IH (09:15)
[2025-11-12] MEDS ORDERED: RISP0.5T5 PO (09:15)
[2025-11-12] MEDS ORDERED: TIMO5DRO18 EACHEYE (09:15)
[2025-11-12] MEDS ORDERED: MAGN296S31 PO (09:15)
[2025-11-12] MEDS ORDERED: LITH150C PO (09:15)
[2025-11-12] MEDS ORDERED: OXYB10TA30 PO (09:15)
[2025-11-12] MEDS ORDERED: CLOP75TA15 PO (09:15)
[2025-11-12] MEDS ORDERED: BISA10SU11 RC (09:15)
[2025-11-12] MEDS ORDERED: MAGN400O6 PO (09:15)
[2025-11-12] MEDS ORDERED: ATOR40TA PO (09:15)
[2025-11-12] MEDS ORDERED: AMAN100C16 PO (09:15)
[2025-11-12] MEDS ORDERED: APIX5TAB PO (09:15)
[2025-11-12] MEDS ORDERED: HYDR-4303 PO (09:15)
[2025-11-12] MEDS ORDERED: MAG30ORA PO (09:15)
[2025-11-12] MEDS ORDERED: NA P133E RC (09:15)
[2025-11-12] MEDS ORDERED: SENN-261 PO (09:15)
[2025-11-12] MEDS ORDERED: MULT-213 PO (09:15)
[2025-11-12] MEDS ORDERED: CETI10TA14 PO (09:15)
[2025-11-12] MEDS ORDERED: LOPE2CAP PO (09:15)
[2025-11-12] MEDS ORDERED: DIVA125T32 PO (09:15)
[2025-11-12] MEDS ORDERED: RASA0.5T2 PO (09:15)
[2025-11-12] MEDS ORDERED: IPRA3AMP23 IH (09:15)
[2025-11-12] MEDS ORDERED: ASPIRIN 81 MG TAB.CHEW PO ONE (10:00)
[2025-11-12] MEDS ORDERED: ALBUTEROL FS 2.5 MG/0.5 ML VIAL.NEB NEB PRN (10:30)
[2025-11-12] MEDS ORDERED: ONDANSETRON HCL/PF 4 MG/2 ML VIAL IVP PRN (10:30)
[2025-11-12] MEDS ORDERED: ACETAMINOPHEN 325 MG TABLET PO PRN (10:30)
[2025-11-12] MEDS ORDERED: hydrALAZINE HCL IV 20 MG VIAL IV PRN (10:30)
[2025-11-12] MEDS ORDERED: MORPHINE SULFATE INJ 2 MG/ML DISP.SYRIN IV PRN (10:30)
[2025-11-12 11:25] VITALS: BP 132/71
[2025-11-12] MEDS: DIVALPROEX SODIUM 125 MG TABLET.DR PO SCH (13:00)
[2025-11-12] MEDS: CARBIDOPA/LEVODOPA 25/100 MG 1 UDTAB PO SCH (14:52)
[2025-11-12] MEDS: GABAPENTIN 300 MG CAPSULE PO SCH (14:52)
[2025-11-12] MEDS ORDERED: DRONEDARONE HYDROCHLORIDE 400 MG TABLET PO SCH (17:00)
[2025-11-12] MEDS ORDERED: DORZOLAMIDE OPTH 2% 10 ML BOTTLE EACHEYE SCH (17:00)
[2025-11-12] MEDS ORDERED: AMANTADINE HCL 100 MG CAPSULE PO SCH (17:00)
[2025-11-12] MEDS ORDERED: DOCUSATE SODIUM LIQ 100 MG/10 ML UDC PO SCH (17:00)
[2025-11-12] MEDS ORDERED: TIMOLOL 0.5% SOLN OPHTH 5 ML BOTTLE EACHEYE SCH (17:00)
[2025-11-12] MEDS ORDERED: LITHIUM CARBONATE 150 MG CAPSULE PO SCH (17:00)
[2025-11-12] MEDS ORDERED: APIXABAN 5 MG TABLET PO SCH (17:00)
[2025-11-12 18:42] VITALS: O2SAT 97
[2025-11-12] MEDS: ALBUTEROL FS 2.5 MG/3 ML VIAL.NEB NEB SCH (18:43)
[2025-11-12] MEDS: IPRATROPIUM NEB FS 0.5 MG/2.5 ML AMPUL.NEB NEB SCH (18:43)
[2025-11-12 18:52] VITALS: O2SAT 97
[2025-11-12] MEDS ORDERED: LATANOPROST EYE DROP 0.005% 2.5 ML BOTTLE RIGHTEYE SCH (22:00)
[2025-11-12] MEDS ORDERED: TAMSULOSIN 0.4 MG CAP.SR.24H PO SCH (22:00)
[2025-11-12] MEDS ORDERED: ATORVASTATIN 40 MG TABLET PO SCH (22:00)
[2025-11-12] MEDS ORDERED: OXYBUTYNIN CHLORIDE ER 5 MG TAB PO SCH (22:00)
[2025-11-13] MEDS ORDERED: cetrizine 10 MG TABLET PO SCH (09:00)
[2025-11-13] MEDS ORDERED: CLOPIDOGREL BISULFATE 75 MG TABLET PO SCH (09:00)
[2025-11-13] MEDS ORDERED: FINASTERIDE (5 MG) 5 MG TABLET PO SCH (09:00)
[2025-11-13] MEDS ORDERED: POLYETHYLENE GLYCOL 3350 17 GM POWD.PACK PO SCH (09:00)
[2025-11-13] MEDS ORDERED: Medication Not On Formulary EA (Rasagiline Mesylate 0.5 MG) PO SCH (09:00)
== END 2025-11-12 19:16 | disposition left against medical advice (07) | DRG 65 ==
LOC: ER 07:39 → TELE 11:09
PROVIDERS: ADMIT Internal Medicine; ATTEND Internal Medicine
DX: I63.9 Cerebral infarction, unspecified (principal); G81.94 Hemiplegia, unspecified affecting left nondominant side; G20.A1 Parkinson's disease without dyskinesia, without mention of fluctuations; G93.89 Other specified disorders of brain; F31.9 Bipolar disorder, unspecified; G40.909 Epilepsy, unspecified, not intractable, without status epilepticus; I48.91 Unspecified atrial fibrillation; Z79.02 Long term (current) use of antithrombotics/antiplatelets; Z79.01 Long term (current) use of anticoagulants; I69.898 Other sequelae of other cerebrovascular disease; J44.89 Other specified chronic obstructive pulmonary disease; I10 Essential (primary) hypertension; R29.810 Facial weakness; Z53.29 Procedure and treatment not carried out because of patient's decision for other reasons; R47.9 Unspecified speech disturbances; R29.701 NIHSS score 1; G89.4 Chronic pain syndrome; H54.62 Unqualified visual loss, left eye, normal vision right eye; M15.9 Polyosteoarthritis, unspecified; I25.10 Atherosclerotic heart disease of native coronary artery without angina pectoris; Z82.3 Family history of stroke; Z79.899 Other long term (current) drug therapy; H40.9 Unspecified glaucoma; N40.0 Benign prostatic hyperplasia without lower urinary tract symptoms; R26.2 Difficulty in walking, not elsewhere classified; M25.562 Pain in left knee; M25.561 Pain in right knee
CPT/HCPCS: 36415; 70450-TC; 70496-TC; 70498-TC; 71045-TC; 80053-TC; 81001; 82962-TC; 83605-TC; 85025-TC; 85730-TC; 92507-TC; 92521; 97110-TC; 97530-TC; 97535-TC; G0378; J7030; J7040; Q9967